=== PATIENT | female | born 1940 | race Caucasian/White ===

== ENCOUNTER 2018-01-31 10:06 | Day surgery (SDC) | payer MEDICARE, OTHER, SELFPAY ==
[2018-01-24 08:53] VITALS: BMI 27.0
[2018-01-31] VITALS (14 sets, daily range): BP systolic 126–175; BP diastolic 57–87; PULSE 55–102; RESP 12–18; TEMP 36.4–36.9; O2SAT 93–98; BMI 27.0
--- NOTE | 2018-01-31 | DI.RAD.S_ITS ---
PROCEDURE: XR CERVICAL SPINE 2V OR 3V INDICATIONS: C5-6 FUSION TECHNIQUE: Fluoroscopic images were obtained during an operative procedure and submitted for interpretation following the completion of the procedure. COMPARISON: None. FINDINGS: These fluoroscopic images were performed for intraoperative localization. On these images, there is a anteriorly placed fusion device at the C5-C6 level. Please correlate with intraoperative findings. IMPRESSION: Normal intraoperative examination. Dictated by: Rafael Leslie M.D. on 01/31/2018 at 15:04 Approved by: Rafael Leslie M.D. on 01/31/2018 at 15:05
[2018-01-31] MEDS: LACTATED RINGERS 1,000 ML 42 ML IV ×2 (12:00→15:09)
--- NOTE | 2018-01-31 12:04 | PM.PREOP ---
Pre-operative Note Interval Note Pre-op Check: Yes History & Physical Reviewed by Physician and Yes Exam Performed Changes: No
--- NOTE | 2018-01-31 12:09 | PM.OP.1 ---
Operative Date/Time/Diagnoses Date of procedure: 01/31/18 Time of procedure: 14:07 Pre-op diagnosis: Cervical stenosis with myelopathy Post-op diagnosis: same Procedure & Clinicians Procedure: C5-6 anterior cervical diskectomy and fusion with cage Iliac crest bone marrow aspirate Use of microscope Same procedure as scheduled: Yes Indications: [age] year old female with intractable pain from cervical stenosis. They had failed conservative management and requested operative intervention. Risks and benefits of surgery were discussed and appropriate consents were obtained. Surgeon: Ozzie Boyce Supervisor Slashing Department: Maria R Moya Anesthesia Type: General Operative Notes Findings: None Closure Type: primary Specimen(s): none sent Implants & Drains: Abiodun LDR MYAH-C Estimated Blood Loss (mL): 5 Procedure in detail: Patient was brought to the operating room and intubated on the table. A time-out was performed. Preoperative antibiotics were given. The neck was prepped and draped in the standard sterile fashion. Using a skin fold, we made a 3 cm oblique incision on the left side. We used Bovie to go through the platysma and then did a standard anterolateral blunt dissection down to the precervical fascia. Fascia was nicked and elevated up. A marker was placed and x-ray was taken for localization. We then subperiosteally elevated up the longus colli muscles. Self-retaining retractors were placed. [place] pins were placed. We then brought in the microscope. A scalpel used to perform an annulotomy. We then used a combination of pituitaries and curettes and Kerrison to perform a complete anterior diskectomy at C5-6. We used the bur to take down the posterior osteophytes. We took down the PLL and used Kerrison to remove any posterior disc material and osteophytes. At the end we could from the nerve hook cephalad caudally and out the foramen and everything was opened. A small stab incision was made over the left anterior iliac crest. A Jamshidi needle was advanced down the pedicle and 2 mL of bone marrow was aspirated. We then used the trials. We then packed a MYAH-C cage with Osteocell bone graft and the iliac crest harvest. The cage was placed under fluoroscopic guidance. We then placed our two locking plates. The self-retaining retractors and [place] pins were removed and final x-rays taken. The wound was irrigated. There was no bleeding. The carotid was beating nicely. The platysma was closed. The superficial was closed. The skin was closed. A sterile dressing was placed. They were then extubated and brought to recovery room with no complications. Complications: none Condition: stable Disposition: PACU Plan for aftercare: Overnight admission, should be fine for discharge home tomorrow morning. Soft collar for comfort.
[2018-01-31] MEDS: CEFAZOLIN 2 GM/100 ML FROZ.PIGGY IV ×2 (12:55→20:37)
[2018-01-31] MEDS: BUPIVACAINE 0.25% W/ EPI VIAL 50 ML INJ (13:26)
[2018-01-31] MEDS: SODIUM CHLORIDE 0.9% 1,000 ML, GENTAMICIN 80 MG IRR (13:32)
--- NOTE | 2018-01-31 13:40 | SUR.OPER ---
Supine on padded OR bed, head on gel doughnut pillow, towel roll under shoulders running head to toe, arms padded and tucked at side, legs uncrossed, safety belt at thigh, tape over blanket over lower legs .
[2018-01-31] MEDS: HYDROMORPHONE 2 MG INJ 0.5 MG IV ×4 (14:37→15:04)
[2018-01-31] MEDS: LORazepam 2 MG/ML SYRINGE 0.25 MG IV ×2 (14:43→15:13)
[2018-01-31] MEDS: CELECOXIB 200 MG CAPSULE 400 MG PO (16:33)
[2018-01-31] MEDS: GABAPENTIN 300 MG CAPSULE PO ×2 (16:33→20:36)
[2018-01-31] MEDS: DICLOFENAC 1% GEL 100 GM 2 APPLIC TOP ×2 (16:33→20:36)
[2018-01-31] MEDS: LACTATED RINGERS 1,000 ML 125 ML IV (16:35)
[2018-01-31] MEDS: CELECOXIB 200 MG CAPSULE PO (20:36)
[2018-01-31] MEDS: DOCUSATE 100 MG CAPSULE PO (20:37)
[2018-01-31] MEDS: SENNOSIDES 8.6 MG TABLET 17.2 MG PO (20:37)
--- NOTE | 2018-01-31 23:35 | PC.NURSE ---
Evening Shift Note- Patient arrived to room via bed from PACU at 1550. patient alert and oriented and drowsy. admission questions completed, home medications reviewed, physical assessment done. Oriented patient to bed and bed controls, room, bathroom, lights, menu, phone, and call ball/tv remote. safety measures in place. Patient requires 1PA w/ walker. Patient agress to call for assistance. call ball and phone within reach will continue to monitor.
[2018-02-01] MEDS: LACTATED RINGERS 1,000 ML 125 ML IV (01:08)
[2018-02-01] MEDS: HYDROCODONE/ACET 5/325 TABLET 1 TAB PO ×3 (01:10→10:33)
[2018-02-01 01:14] VITALS: BP 121/45; PULSE 53; RESP 16; TEMP 36.8; O2SAT 94
--- NOTE | 2018-02-01 01:25 | PC.NURSE ---
Addendum entered by Ena Felix R.N. 02/01/18 05:36: States pain is currently 5/10 so medicated with Vicodin and provided ice pack. Oxygen remains at 2L/min with sat of 99% but when oxygen is decreased and patient falls asleep she desats into the 80's, so continues on oxygen at this time. Original Note: Addendum entered by Ena Felix R.N. 02/01/18 02:06: Oximeter alarming and found RA sat to be at 85% so oxygen restarted at 1L/min per NC Original Note: Patient is alert and oriented. Breath sounds CTA with RA sat of 94%. HRR but noted to be in 40's when asleep and 50's after being up to bathroom. Denies nausea. BT present but denies flatus. Ambulated with 1 assist + walker to/from bathroom and seemed steady on feet but reports falls in past 3 months. Voiding without dysuria, frequency or urgency. Independent with bed mobility. Dressings to anterior neck and left hip are CDI. Wearing soft cervical collar for comfort. Complains of 4/10 posterior neck pain so medicated with Vicodin and ice pack applied for comfort. Noted bruise at medial aspect of left eye. Chronic bilateral LE neuropathy. Fall risk score is high and bed alarm is activated.
[2018-02-01 03:04] VITALS: O2SAT 99
[2018-02-01] MEDS: CEFAZOLIN 2 GM/100 ML FROZ.PIGGY IV (05:26)
[2018-02-01 06:18] VITALS: BP 152/59; PULSE 55; RESP 16; TEMP 36.6; O2SAT 98
[2018-02-01] MEDS: LEVOTHYROXINE 75 MCG TABLET PO (06:34)
[2018-02-01 08:00] VITALS: BP 124/58; PULSE 47; RESP 16; TEMP 36.5; O2SAT 94
--- NOTE | 2018-02-01 08:03 | PM.PNPO.1 ---
Subjective Date Patient Seen: 02/01/18 Time Patient Seen: 08:03 Interval history: Doing very well. Arms feel fine. Pain about 3/10. Exam Vital Signs (past 8 hours): - 02/01/18 01:14 02/01/18 03:04 02/01/18 06:18 Temperature 98.2 F 97.9 F Pulse Rate 53 L 55 L Respiratory Rate 16 16 Blood Pressure 121/45 L 152/59 H Pulse Oximetry 94 99 98 Oxygen Delivery Method Room Air Oxygen Flow Rate 2 Const Orientation: alert and oriented x3 Back/Spine/Pelvis Other: Dressing CDI. 5/5 motor both upper extremities except for 4/5 bilateral intrinsic Assessment & Plan Post-op Postoperative Procedures Operation Date: 01/31/18 12:15 Actual Procedures Side Surgeon p C5-6 ACDF w/Bone graft Ozzie Boyce MD she is doing very well. Up with physical therapy and discharge home this morning.
[2018-02-01] MEDS: AMLODIPINE 5 MG TABLET PO (08:39)
[2018-02-01] MEDS: ASPIRIN EC 81 MG TABLET PO (08:40)
[2018-02-01] MEDS: ASCORBIC ACID 500 MG TABLET PO (08:40)
[2018-02-01] MEDS: CALCIUM CARBONATE 600 MG TABLET PO (08:40)
[2018-02-01] MEDS: CELECOXIB 200 MG CAPSULE PO (08:40)
[2018-02-01] MEDS: CITALOPRAM 20 MG TABLET PO (08:41)
[2018-02-01] MEDS: DICLOFENAC 1% GEL 100 GM 2 APPLIC TOP (08:41)
[2018-02-01] MEDS: DOCUSATE 100 MG CAPSULE PO (08:42)
[2018-02-01] MEDS: FERROUS SULFATE 325 MG TABLET PO (08:42)
[2018-02-01] MEDS: FUROSEMIDE 20 MG TABLET PO (08:43)
[2018-02-01] MEDS: PANTOPRAZOLE 20 MG TABLET PO (08:43)
[2018-02-01] MEDS: GABAPENTIN 300 MG CAPSULE PO (08:43)
--- NOTE | 2018-02-01 09:08 | PT.IPTN ---
Addendum entered and electronically signed by Zaira Martin PT 02/01/18 13:41: this is to certify that I am involved with this pt and reviewed this documentation and POC. Original Note: Current Diagnoses Spondylolisthesis, lumbar region (01/31/18) Other spondylosis with myelopathy, cervical region (01/31/18) Spinal stenosis, lumbar region with neurogenic claudication (01/31/18) Surgery Performed Operation Date: 01/31/18 12:15 Actual Procedures p C5-6 ACDF w/Bone graft - Ozzie Boyce MD Physical Therapy Treatment Note M2 PT-IP Current Condition Start: 02/01/18 10:42 Freq: NEEDED Status: Discharge Protocol: Document 02/01/18 09:08 (Rec: 02/01/18 11:12 [email or web address]) Physical Therapy Current Condition Current Condition Evaluation Date 02/01/18 Treatment Diagnosis C-spine discectomy/fusion; difficulty walking; history of falls Onset Date 01/31/2018 Precautions Cervical Spine Precautions Soft Collar for Comfort No Heavy Lifting Log Roll Brace soft collar for comfort. Other Precautions high fall risk M3 PT-IP Subjective Start: 02/01/18 10:42 Freq: NEEDED Status: Discharge Protocol: Document 02/01/18 09:08 (Rec: 02/01/18 11:12 [email or web address]) Subjective Physical Therapy Visit Type Type Initial Evaluation Visit Start Time 09:03 Visit Stop Time 09:50 Total Visit Minutes [address] ENGINEER FREIGHT Visits 0 Physical Therapy Visit Comments Patient Comments Pt agreeable to mobilize. Her grandaugher and [id number]- law are present this visit; they will be driving her home from the hospital. Patient Goals Pt planning to d/c to home with her daughter 18/10 assist and neighbor intermittent assist. Therapy Pain Assessment Pain When Pain Assessed During Mobility Pain Present Pain Present Pain Reported Location Posterior Neck Scale Used 6/10 at rest. up to 7/10 with mobility. Pain Behaviors Facial Grimacing Guarding Pain Management Techniques Distraction Modification of Treatment Re-positioning Timing of Activity with Medications M4 PT-IP Mobility and Gait Start: 02/01/18 10:42 Freq: NEEDED Status: Discharge Protocol: Document 02/01/18 09:08 (Rec: 02/01/18 11:12 [email or web address]) PT-Bed Mobility Assessment Rolling Type of Rolling Log Rolling Roll to Left Level of Assist Standby Assistance Contact Guard Assistance Supine to Sit Supine to Sit Standby Assistance Sit to Supine Sit to Supine Standby Assistance Scooting Scooting to Edge of Bed Standby Assistance PT-Transfer Assessment Sit to and From Stand Sit to and from Stand Standby Assistance Equipment Transfer Assistive Device Gait Belt Front Wheeled Walker Orthotic/Prosthetic Devices or Brace: Yes Transfers Transfer Destination Bed Chair Transfer Technique pt ambulating between surfaces . Comments Mobility Comments Pt performed log roll 3 times requiring min cues and CGA for the first 2 attempts and then able to complete log roll SBA and no cuing the 3rd attempt. Sit <> stand pt is SBA with fww, min cues to push off from chair/bed (not walker). Gait Assessment Gait Gait Assistance Required: Standby Assistance Contact Guard Assist Minimum Assistance Distance (Feet) 60 Able to Maintain Weight Bearing Status Yes During Gait Assistive Devices Assistive Device Gait Belt Straight Cane Front Wheeled Walker 4 Wheeled Walker Orthotic/Prosthetic Devices or Brace: Yes Gait Deviations General Gait Pattern Antalgic Decreased Stride Length Decreased Feet Clearance Flexed Trunk Lateral Trunk Lean Factors Limiting Gait Function Factors Limiting Gait Function Decreased Activity Tolerance Decreased Sensation Decreased Strength Incoordination Limited Range of Motion Pain Poor Balance Poor Safety Awareness Comments Gait Comments Pt ambulated 15 ft. with fww SBA. Then attempted quad cane x10 ft. and was minAx1 for steadying with several minor LOB that required Orville to correct. She required max cues for appropriate quad cane use. Attempted 15 ft. with 4WW and pt was CGA to Orville for steadying. Additional 20 ft in room with fww and SBA completed. It was noted that pts gait mechanics also improve greatly when using fww , notably improved step clearance, step length, posture, as well as steadyness . PT-Balance Assessment Sitting Balance and Reactions Static Sitting Balance Ability Good Dynamic Sitting Balance Ability Good Standing Balance and Reactions Static Standing Balance Ability Fair Dynamic Standing Balance Ability Poor Device Used quad cane Comments Other Balance Tests/Deviations/Treatment Dynamic balance improves with : fww during ambulation M5 PT-IP Objective Assessments Start: 02/01/18 10:42 Freq: NEEDED Status: Discharge Protocol: Document 02/01/18 09:08 (Rec: 02/01/18 11:12 [email or web address]) Orientation Orientation/Cognition Level of Alertness Alert Orientation Name Age Birthday Month Date Year Day of Week Place Situation Language Function Ability No Deficits Noted Safety Awareness Decreased Safety Awareness Strength Lower Extremity Strength Assessment Bilaterally Impaired Comments Strength Comments BLE 4-/5 gross strength but symmetrical Sensation Assessment Sensation Gross Sensation Right LE Impaired Left LE Impaired Light Touch Impaired Comments Sensation Comments light touch is decreased R > L . M6 PT-IP Treatment Start: 02/01/18 10:42 Freq: NEEDED Status: Discharge Protocol: Document 02/01/18 09:08 (Rec: 02/01/18 11:12 [email or web address]) Physical Therapy Treatment Education Education Provided Precautions Weight Bearing Status Post-Op Packet Safety Other Treatments Other Treatment Performed Caregiver education regarding gait belt donning and doffing ([id number]). States he is comfortable with this. Pt educated in need for fww for safety and balance as well as need for 24/7 assist currently. M7 PT-IP Assessment and Plan Start: 02/01/18 10:42 Freq: NEEDED Status: Discharge Protocol: Document 02/01/18 09:08 (Rec: 02/01/18 11:12 [email or web address]) PT Summary Assessment and Plan Potential Rehabilitation Potential Good Status of Condition at Evaluation Stable Summary Impairments Pain ROM Strength Balance Coordination Bed Mobility Transfers Gait Activity Tolerance Progress Towards Goals Progressing Toward Goals Assessment Summary Pt s/p C-spine discectomy/ fusion with difficulty walking and history of falls. She demonstrates impaired dynamic balance during ambulation requiring SBA with fww, and Orville for safety with quad cane . Pt informed of PT recommendation for pt to use a fww for all ambulation for safety. She agreed and her grandson is working on obtaining a fww for her. Recommend d/c to home with 24/ 7 assist and OP PT when pt is medically stable. Goals Bed Mobility Goal Independent Transfer Goal Independent Front Wheeled Walker Gait Goal Standby Assistance Front Wheel Walker Gait Distance 150 Other Goals STG: pt will ambulate 75 ft with fww SBA LTG: pt will ambulate 100 ft. with fww SBA Days to Meet Goals 2 Frequency of Treatment Frequency Of Treatment Twice a Day Treatment Plan Physical Therapy Treatment Plan Bed Mobility Training Transfer Training Gait Training Therapeutic Exercise Balance Retraining Post Op Education Discharge Planning Hot or Cold Pack Neuromuscular Re-ed Coordination Retraining Manual Therapy Recommendations To Nursing Amount of Assist Needed 1 Person Assist Discharge Recommendations PT Discharge Recommendations Home with 24/7 Assist Outpatient PT
--- NOTE | 2018-02-01 10:38 | OT.IP.EVAL ---
Current Diagnoses Spondylolisthesis, lumbar region (01/31/18) Other spondylosis with myelopathy, cervical region (01/31/18) Spinal stenosis, lumbar region with neurogenic claudication (01/31/18) Surgery Performed Operation Date: 01/31/18 12:15 Actual Procedures p C5-6 ACDF w/Bone graft - Ozzie Boyce MD Past Medical History (Last Reviewed 01/31/18 @ 16:33 by Deena Calderon RN) Anemia (Acute) Anxiety (Acute) Aortic atherosclerosis (Acute) Aortic valve stenosis (Acute) Bradycardia (Acute) Cervical fusion syndrome (Acute) Cervical stenosis of spinal canal (Acute) Chronic kidney disease (Acute) Chronic left shoulder pain (Acute) DDD (degenerative disc disease), cervical (Acute) Depression (Acute) Disorder (Acute) Essential hypertension (Acute) Exertional dyspnea (Acute) Fatigue (Acute) Fracture of right wrist (Acute) Hiatal hernia (Acute) History of abdominal pain (Acute) History of nuclear stress test (Acute ~06/25/16) Hypothyroidism (Acute) Lower extremity edema (Acute) Lumbar radicular syndrome (Acute) Lumbar stenosis with neurogenic claudication (Acute) Osteoarthritis of left shoulder (Acute) Pigmented skin lesion suspicious for malignant neoplasm (Acute) Pulmonary embolism (Acute) Radius fracture (Acute ~12/09/17) Recurrent epigastric abdominal pain (Acute) Rib pain on left side (Acute) Spondylolisthesis, lumbar region (Acute) Stenosis of cervical spine with myelopathy (Acute) Traumatic closed fracture of ulnar styloid with minimal displacement (Acute) Weakness (Acute) Surgical History (Last Reviewed 01/31/18 @ 16:33 by Deena Calderon RN) H/O bilateral cataract extraction (Acute) History of adenoidectomy (Acute) History of hernia repair (Acute ~2008) History of knee surgery (Acute) Status post total shoulder arthroplasty (Acute) Occupational Therapy Inpatient Evaluation/Re-Eval M1 PT/OT-IP Prior Functional Status Start: 02/01/18 15:21 Freq: NEEDED Status: Active Protocol: Document 02/01/18 10:38 JS (Rec: 02/01/18 17:07 JS [email or web address]) Medical Review Prior Functional Status Medical History Reviewed Yes Communication No deficits noted. Mobility and Gait Pt used a quad cane for 100% outdoor ambulation. Indoors she used quad cane ~70% of the time or no AD. She could ambulate distances for shopping. Activities of Daily Living and IADL's Pt was independent with all self care, IADLS, driving. Prior Functional Level (Other details) 3 falls reported in just the last month. Several more over the last year. Social History Household Members none Living Arrangements House Number of Floors (Floors) Two Floors Number of Stairs To Enter/Railing? No stairs to enter. She has a basement with freezer and storage in it but she never goes there, asking friends or family to access it for her when needed. Home Environment Standard Height Toilet Walk in Shower Ramp Home Equipment Four Wheel Walker Quad Cane Bedside Commode Raised Toilet Seat Without Armrests Shower Seat with Backrest Hand Held Shower Structural Steel Shop Supervisor Grab Bars Near Toilet Grab Bars In Shower Employment Status Retired Additional Social History Comment Pts daughter, Coco, is planning to stay with the patient after discharge for 2- 3 days 18/10. Family and her neighbor will also be available to assist intermittently. M2 OT-IP Current Condition Start: 02/01/18 15:21 Freq: Status: Active Protocol: Document 02/01/18 10:38 PJM (Rec: 02/01/18 17:07 PJ [email or web address]) Occupational Therapy Current Condition Current Condition Evaluation Date 02/01/18 Treatment Diagnosis decreased self care, functional mobility s/p C5-6 ACDF Diagnosis Onset Date 01/31/18 Post Operative Precautions Cervical Spine Precautions Soft Collar for Comfort No Heavy Lifting Log Roll Other Precautions high fall risk M3 OT- IP Subjective and Pain Start: 02/01/18 15:21 Freq: Status: Active Protocol: Document 02/01/18 10:38 PJM (Rec: 02/01/18 17:07 [facility] [email or web address]) OT- Subjective Occupational Therapy Visit Type Type Initial Evaluation Visit Start Time 09:42 Visit Stop Time 10:38 Total Visit Minutes 56 Notes Pt's granddaughter here at end of session for education. Occupational Therapy Visit Comments Patient/Caregiver Goals to go home OT Pain Assessment Pain When Pain Assessed After Treatment Pain Present Pain Present Pain Reported Location Posterior Neck Intensity 6 Scale Used Numeric (1 - 10) Description Aching Acute Management Techniques Distraction Re-positioning Timing of Activity with Medications M4 OT- IP ADL's Start: 02/01/18 15:21 Freq: Status: Active Protocol: Document 02/01/18 10:38 PJM (Rec: 02/01/18 17:07 PJ [email or web address]) OT ESO-Ficv-[id number] General Evaluation Diet Level for Self-Feeding soft foods recommended Self-Feeding Ability Independent OT ADL-Grooming General Evaluation Grooming Ability Independent Areas Needing Assistance Combing/Brushing Hair Glasses Comments OT Grooming Comments after education re: body mechanics with FWW standing at sink OT ADL-Oral Care General Eval Oral Care Ability Independent Areas of Assistance Brushing Teeth Devices Oral Care Devices Toothbrush Comments Oral Care Comments after education re: body mechanics with FWW standing at sink OT ADL-Dressing General Eval Upper Body Dressing Ability Independent Lower Body Dressing Ability Standby Assistance Minimal Assistance Areas Needing Assistance Bra Button-Up Shirt/Blouse Underpants/Brief Pants/Shorts Socks Shoes Assistive Devices Dressing Assistive Devices Long Handled Shoe [place] [employer] Shop Supervisor Sock Aid Comments OT Dressing Comments Provided education and practice re: use of lower body dressing equipt to avoid forward bending. Pt SBA except to don slip on shoes due to very tight fit. Granddaughter to assist with finding looser shoes. OT ADL-Toileting General Evaluation Toileting Ability Independent OT ADL-Bathing Bathing Type Bathing Type Shower General Evaluation Bathing Ability Standby Assistance Comments OT Bathing Comments daughter to provide SBA PRN; provided education re: keeping incision dry until first post op visit M5 OT- IP IADL's Start: 02/01/18 15:21 Freq: Status: Active Protocol: Document 02/01/18 10:38 PJLeda (Rec: 02/01/18 17:07 PJ [email or web address]) OT-Instrumental Activities of Daily Living Deficits IADL Deficits Identified Deficits Home Safety Awareness Awareness of Need for Assistance at Home Good Awareness Ability to Problem Solve Emergency Able to Problem Solve Situations Medication Management Medication Management No Deficits Identified Money Management Money Management No Deficits Identified Meal Preparation Meal Preparation Caregiver Provides Assist Meal Preparation Comments granddaughter to assist with grocery shopping PRN Menagerie Caretaker Menagerie Caretaker Caregiver Provides Assist Menagerie Caretaker Comments family to assist PRN until pt able Driving Driving Caregiver Provides Assist Driving Comments family to assist PRN until pt able M6 OT- IP Functional Cognition Start: 02/01/18 15:21 Freq: Status: Active Protocol: Document 02/01/18 10:38 PJM (Rec: 02/01/18 17:07 [facility] [email or web address]) Cognitive Factors Limiting Selfcare Function Cognitive Ability Level of Alertness Alert Patient Orientation Name Age Birthday Month Date Year Day of Week Place Situation Attention Span Ability Capable of Focused Attention Capable of Sustained Attention Ability to Follow Commands Able to Follow One Step Commands Cognitive Comments Cognitive Assessment Comments Pt needs min cues to problem solve adapted ADL techniques OT- Vision and Hearing OT- Hearing Assessment OT- Hearing Assessment WFL OT- Vision Assessment Visual Attentiveness WFL Vision Assessment Comments Pt denies any recent vision changes M7 OT- IP Mobility and Balance Start: 02/01/18 15:21 Freq: Status: Active Protocol: Document 02/01/18 10:38 PJM (Rec: 02/01/18 17:07 [facility] [email or web address]) OT-Transfer Assessment Sit to and From Stand Sit to and from Stand Independent Devices Transfer Assistive Devices Front Wheeled Walker Comments Mobility Comments Pt up in chair when therapist arrived. P.T. educated pt re: log rolling. OT- Gait Assessment Gait Gait Assistance Required: Independent Assistive Devices Assistive Device Front Wheeled Walker OT- Balance Assessment Sitting Balance and Reactions Static Sitting Balance Ability Good Dynamic Sitting Balance Ability Good Standing Balance and Reactions Static Standing Balance Ability Good Dynamic Standing Balance Ability Good Comments Other Balance Tests/Deviations/Treatment during lower body clothing : management M8 OT- IP Objective Assessments Start: 02/01/18 15:21 Freq: Status: Active Protocol: Document 02/01/18 10:38 PJM (Rec: 02/01/18 17:07 [facility] [email or web address]) OT Gross Range of Motion Upper Extremity Range of Motion Assessment Left Impaired ROM Impairments R shldr scaption AROM ~10 degrees and L shldr scaption ~ 45 degrees due to severe arthritis. Distal AROM WFL distally. OT Strength Upper Extremity Strength Assessment Within Functional Limits Hand Mixing Machine Feeder Strength Hand Dominance Right OT- Coordination Assessment Comments Coordination Comments BUE WFL; pt uses L hand dominantly for some tasks due to decreased R shoulder AROM OT-Muscle Tone Assessment Muscle Tone WNL Yes OT Sensation Assessment Comments Summary Comments Pt denies sensory deficits in BUE's Edema Edema Absent M9 OT- IP Assessment and Plan Start: 02/01/18 15:21 Freq: Status: Active Protocol: Document 02/01/18 10:38 PJM (Rec: 02/01/18 17:07 PJLeda [email or web address]) OT Summary Assessment and Plan Potential Analytic Complexity at Evaluation Low Summary Progress Towards Goals Safe For Discharge Goals Met Assessment Summary Low complexity OT assessment and all education completed today re: C spine precautions and adapted ADL techniques. Pt plans to d/c home today with daughter to stay with her for first 2-3 days, then granddaughter to provide intermittent assist. Goals Grooming Goal Independent Dressing Goal Standby Assistance Toileting Goal Independent Bathing Goal Standby Assistance Toilet Transfer Goal Independent Shower Transfer Goal Standby Assistance Patient/Caregiver Education Goal Demonstrate Post-Op Precautions Frequency of Treatment Frequency Of Treatment Discharge Discharge Recommendations OT Discharge Recommendations Home with Assistance Home Equipment Needs pt provided with sock aid, long bath sponge and long shoe horn
[2018-02-01 11:00] VITALS: BP 135/60; PULSE 52; RESP 12; TEMP 37.4; O2SAT 96
== END 2018-02-01 11:05 | disposition home or self-care (01) ==
LOC: OR 10:13 → AC 10:13
PROVIDERS: PCP Family Medicine; Visit Provider Orthopaedic Surgery
PROC: (CPT 22551; principal; 2018-01-31 12:15)
DX: M47.12 Other spondylosis with myelopathy, cervical region (principal); M48.062 Spinal stenosis, lumbar region with neurogenic claudication; M43.16 Spondylolisthesis, lumbar region; Z86.711 Personal history of pulmonary embolism; M19.90 Unspecified osteoarthritis, unspecified site; E03.9 Hypothyroidism, unspecified; I25.10 Atherosclerotic heart disease of native coronary artery without angina pectoris; N18.9 Chronic kidney disease, unspecified; I12.9 Hypertensive chronic kidney disease with stage 1 through stage 4 chronic kidney disease, or unspecified chronic kidney disease
CPT/HCPCS: 22551; 20939; 22853; 72040; 76001; 94760; 97116; 97161; 97165; 97530; 97535; C1776; J0330; J0690; J1100; J1170; J2060; J2250; J2405; J2704; J3010

== ENCOUNTER 2018-12-05 06:03 | Inpatient (IN) | payer MEDICARE, OTHER, SELFPAY ==
[2018-01-31 16:39] VITALS: BMI 27.0
[2018-11-14 09:53] VITALS: BMI 26.7
[2018-12-05] VITALS (27 sets, daily range): BP systolic 79–132; BP diastolic 41–74; PULSE 59–107; RESP 9–20; TEMP 36.2–37.5; O2SAT 2–100; BMI 25.9
--- NOTE | 2018-12-05 | DI.RAD.S_ITS ---
PROCEDURE: XR LUMBAR SPINE 2-3V INDICATIONS: T-10-12 L3-S1 LAMINECTOMIES, L4-S1 INSTRUMENTED FUSION TECHNIQUE: 2 views of the lumbar spine were acquired. COMPARISON: None. FINDINGS: 2 spot fluoroscopic intraoperative images demonstrating L4-S1 posterior spinal fusion with interbody cage grafts. There is expected intraoperative alignment. Dictated by: Mak Wang M.D. on 12/05/2018 at 15:25 Approved by: Mak Wang M.D. on 12/05/2018 at 15:25
--- NOTE | 2018-12-05 07:21 | SUR.PREOP ---
Pt reports has numbness and tingling in both lower extremities in which pt reports at times goes all the way up into her hips. pt reports numbness and tingling is mostly constant in her her feet.
[2018-12-05] MEDS: LACTATED RINGERS 1,000 ML 42 ML IV ×2 (07:27→12:30)
--- NOTE | 2018-12-05 07:30 | PM.PREOP ---
Pre-operative Note Interval Note History & Physical reviewed/Exam performed by Physician: Yes Changes to H&P: No
--- NOTE | 2018-12-05 07:43 | PC.NURSE ---
Day shift: Pt not on AC unit at this time.
--- NOTE | 2018-12-05 07:45 | P.OP_ITS ---
Operative Date/Time/Diagnoses Date of procedure: 12/05/18 Time of procedure: 13:39 Pre-op diagnosis: Thoracic stenosis with myelopathy Lumbar stenosis with radiculopathy Lumbar spondylolisthesis Post-op diagnosis: same Procedure & Clinicians Procedure: T10-11, T11-12 laminectomies L3-4, L4-5, L5-S1 laminectomies L4-5, L5-S1 TLIF (post/post innerbody fusion) with cages L4, L5, S1 screws Iliac crest bone graft aspirate Use of microscope Placement of epidural catheter Same procedure as scheduled: Yes Indications: [age] year old female with intractable pain from myelopathy. They had failed conservative management and requested operative intervention. Risks and benefits of surgery were discussed and appropriate consents were obtained. Surgeon: Ozzie Boyce Pump Machine Operator: Maria R Moya Anesthesia Type: General Operative Notes Findings: None Closure Type: primary Specimen(s): none sent Prosthetic devices, grafts, tissues, transplants, or devices: Nuvasive Reline MAS screws Globus Rise cage Applied: catheter Estimated Blood Loss (mL): 20 Procedure in detail: The patient was brought to the operating room and intubated on the table. A time-out was performed. They were then rolled over to the well- padded Ismael table in the prone position. Preoperative antibiotics were given. The back was prepped and draped in the standard sterile fashion. Using fluoroscopy, a 6 cm longitudinal incision was made to the right of the midline. We used Bovie to come down to and split the lumbodorsal fascia. Using fluoroscopy and monitoring, we then percutaneously placed Jamshidi needles down the pedicles of L4, L5, and S1 on the right side. These were changed out to guidewires and then we tapped and then placed the NuVasive MAS Reline screw shanks. We then opened up the retractors and used Bovie to clear up the posterolateral gutter as well as medially along the lamina to the spinous processes. A bur was used to decorticate the transverse processes at L5 and the sacral ala. We brought in the microscope. Using a combination of bur and Kerrison rongeurs, a laminectomy was performed from the right side at L5-S1. We cleared over past the midline and carefully depressed the dura until we were able to decompress the opposite side. We cleared out the neural foramen, requiring facetectomy. This completed the laminectomy at L5-S1. We then began the TLIF prep. A the remainder of the facetectomy was performed on this side at L5-S1. We carefully cleaned up the remainder of the foramen until we could easily retract the exiting root as well as clearing medially below the dura and expose the disc space. The disc was prepped with bipolar and then an annulotomy was performed. We performed a diskectomy using a combination of paddles, harpreet, pituitaries, and curettes. We distracted the disc using a paddle and locked the retractor in an open position. We then filled the disc space with Osteocel bone graft. We then placed the globus Rise cage under fluoroscopy and then filled this in with more bone graft. The distraction on the retractor was released to compress down. This completed the posterior interbody fusion portion of the TLIF at L5-S1. We then adjusted our retractors up to L4-5. We cleared out the gutter and decorticated the L4 transverse process. We cleared medially over the lamina. Again a complete laminectomy was performed at this level. This was separate and distinct from the approach for the fusion as she had severe central stenosis in the entire canal had to be opened up, which is much more complex than just a simple approach. Once this was opened, we carefully retracted the dura medially and exposed the disc. A complete diskectomy was performed and then we placed bone graft into the disc space. We placed another globus Rise cage in fluoroscopy and expanded this. More bone graft was placed. This completed the posterior interbody portion of the TLIF at L45. We then went up to L3-4. The retractor was switched off just mounted on the L4 screw. We cleared the soft tissue off the lamina. A complete laminectomy was performed at this level decompressing the central canal. Everything was confirmed with a ball probe. We then placed the screw heads, gina, and locked down the set screws. The wound was copiously irrigated. A small stab incision was made over the PSIS. We used a Jamshidi needle to aspirate several mL of bone marrow from the pelvis. This was mixed with the remaining Osteocel and combined with all of the locally harvested bone graft and placed in the posterolateral gutter for the posterior fusion of the TLIF at L4-5 and L5-S1. An epidural catheter was then primed and placed in the spinal canal by carefully depressing the dura and advancing it 6 cm cephalad under the remaining lamina without resistance. The muscle fascia was closed. We then used fluoroscopy to go up to the thoracic spine. A 5 cm midline incision was made from T10 through 12. We dissected the paraspinal muscles off both sides. We brought in the microscope. A laminectomy was performed at T10- 11 and T11-12 for central decompression at these levels. We did this with bilateral laminotomies on both sides in order to keep the spinous processes and midline ligaments intact. Due to the spondylolisthesis at this T11-12, the dura dove deeply underneath the T12 lamina and I undermined the cephalad portion of this to take the tension off the dura. The wound was irrigated. The fascia was closed. The lumbar epidural catheter was then injected with a solution containing 4 mL of 0.5% Marcaine, 1 mg Stadol, 4 mg Duramorph, and 100 mcg of fentanyl. This was injected without resistance and the catheter was pulled. We then went to the left side. Again using fluoroscopy, a 3 cm incision was made and Bovie was used to come down to split the fascia. Using neural monitoring and fluoroscopy, Jamshidi needles were advanced down the pedicles of L4, L5, and S1 on the left side. These were switched over guidewires, tapped, and screws placed. We then placed a gina and locked the set screws on this side. The wound was irrigated. The fascia was closed. The wounds were irrigated again. Vancomycin powder was placed in the wounds. The superficial and skin were closed. A sterile dressing was placed. The patient was then rolled over extubated and brought to recovery room without complications. Complications: none Post-operative Condition: stable Disposition: PACU Plan for aftercare: Inpatient. Up with therapy.
[2018-12-05] MEDS: CEFAZOLIN 1 GM/50 ML FROZ.PIGGY IV ×3 (08:12→19:31)
--- NOTE | 2018-12-05 08:48 | SUR.OPER ---
Prone on spine table, head in foam head support, padded chest and pelvic supports, gel pad at knees, lower legs supported by pillows; nipples, genitalia and toes free of pressure, arms secured on foam padded arm boards at <90 degrees abduction. Tape over blanket at thigh secured to table.
[2018-12-05] MEDS: VANCOMYCIN 1,000 MG VIAL 1000 MG TOP (08:54)
[2018-12-05] MEDS: SODIUM CHLORIDE 0.9% 1,000 ML, GENTAMICIN 80 MG IRR (08:55)
[2018-12-05] MEDS: THROMBIN (RECOMBINANT) 5,000 UNIT VIAL 5000 UNIT TOP (08:56)
[2018-12-05] MEDS: BUPIVACAINE 0.5% (PF) 4 ML, MORPHINE-PF 4 MG, BUTORPHANOL 1 MG, fentaNYL 100 MCG INJ (08:58)
[2018-12-05] MEDS: BUPIVACAINE 0.25% W/ EPI 30 ML VIAL INJ (13:17)
--- NOTE | 2018-12-05 13:59 | CM.DPNOTE ---
DCP Brief Assessment Note Patient is an 78 year old female who was admitted today 12/05/18 for TLIF. Pt has MCR and REG PPO for insurance and her PCP is Dr. Priti Schneider. EMR was reviewed. Per Ortho , pt to have surgery this morning and PT/OT to be ordered after pt returns to the floor and is medically appropriate. SW attempted bedside assessment but pt still not on the floor but in recovery as of 1400. Plan: SW to follow for bedside assessment tomorrow and follow for PT/OT eval and recommendations to determine if pt safe for return home with family support vs SNF. LIDNA Carroll
[2018-12-05] MEDS: MEPERIDINE 50 MG/ML INJ 12.5 MG IV ×2 (14:05→14:14)
[2018-12-05] MEDS: fentaNYL 100 MCG/2 ML INJ 50 MCG IV ×2 (14:26→14:45)
[2018-12-05] MEDS: HYDROMORPHONE 2 MG INJ 0.5 MG IV ×2 (14:31→14:56)
--- NOTE | 2018-12-05 15:10 | SUR.PHASEI ---
Anesthesia at bedside, aware of pt bp reading. Dr. Hall gave pt 100 mcg phenylephrine IV. Pt in stable condition.
--- NOTE | 2018-12-05 15:43 | SUR.PHASEI ---
Bedside report given to SHAUN Schaeffer on acute care floor. Pt in stable condition, vss. Pt family at bedside. Drsg observed to be c/d/i. Pt alert and talking to RN when spoken to. Transferred care of pt to SHAUN Schaeffer at that time.
[2018-12-05] MEDS: LACTATED RINGERS 1,000 ML 125 ML IV (15:52)
[2018-12-05] MEDS: GABAPENTIN 300 MG CAPSULE PO ×2 (16:03→21:12)
--- NOTE | 2018-12-05 16:07 | PC.ADMIT ---
[id number] [facility] Admission Note: The patient,Jorge Jensen,78 y/o, was given written information regarding hospital policies, unit procedures and contact persons. Patient's smoking status: Never smoker. Vital Signs - 8 hr 12/05/18 13:43 12/05/18 13:48 12/05/18 13:53 Temperature 98.4 F Pulse Rate 91 H 90 91 H Respiratory Rate 16 14 15 Blood Pressure 128/74 121/68 Pulse Oximetry 100 100 100 12/05/18 13:58 12/05/18 14:03 12/05/18 14:08 Temperature Pulse Rate 91 H 60 60 Respiratory Rate 14 12 17 Blood Pressure 123/67 108/57 L 89/58 L Pulse Oximetry 100 94 100 12/05/18 14:13 12/05/18 14:18 12/05/18 14:23 Temperature 97.7 F Pulse Rate 60 60 60 Respiratory Rate 10 L 16 11 L Blood Pressure 106/55 L 79/53 L 110/50 L Pulse Oximetry 2 L 99 100 12/05/18 14:28 12/05/18 14:33 12/05/18 14:38 Temperature Pulse Rate 60 60 60 Respiratory Rate 9 L 10 L 9 L Blood Pressure 111/49 L 101/47 L 100/49 L Pulse Oximetry 100 97 99 12/05/18 14:43 12/05/18 14:53 12/05/18 15:08 Temperature Pulse Rate 59 L 60 60 Respiratory Rate 10 L 11 L 14 Blood Pressure 102/48 L 93/47 L 90/46 L Pulse Oximetry 99 96 91 12/05/18 15:13 12/05/18 15:23 12/05/18 15:35 Temperature 97.2 F L 98.0 F Pulse Rate 60 60 61 Respiratory Rate 11 L 13 15 Blood Pressure 98/48 L 97/46 L 115/49 L Pulse Oximetry 100 100 98 Patient up from surgery via bed. Drowsy but wakes easily for short times. Family at bedside.
[2018-12-05] MEDS: SENNOSIDES 8.6 MG TABLET 17.2 MG PO (21:12)
[2018-12-05] MEDS: DOCUSATE 100 MG CAPSULE PO (21:12)
[2018-12-05] MEDS: OXYBUTYNIN 5 MG ER TAB PO (21:13)
[2018-12-05] MEDS: HYDROCODONE/ACET 5/325 TABLET 1 TAB PO (21:18)
--- NOTE | 2018-12-05 22:24 | PC.NURSE ---
Flacc score 4/10, gave 1 tab of norco. IVF, SCDs. pt ate a little bit of pudding, but went back to sleep. VSS.
[2018-12-06] MEDS: LACTATED RINGERS 1,000 ML 125 ML IV ×2 (00:13→09:16)
[2018-12-06] MEDS: HYDROCODONE/ACET 5/325 TABLET 1 TAB PO ×5 (01:15→20:13)
--- NOTE | 2018-12-06 01:37 | PC.NURSE ---
Addendum entered by Ena Felix R.N. 12/06/18 06:25: Maintaining sat at 93-94% with 0.5ml oxygen. States pain is 5/10 so medicated with Vicodin. Whenever awake and questioned about anything patient very hesitant in responses and becomes restless/twitchy in extremities and then sats decline to upper 80's. Once left alone goes back to sleep and no restlessness/twitching noted. Addendum entered by Ena Felix R.N. 12/06/18 05:38: Has been sleeping since Vistaril given. O2 sat on 1L oxygen remaining in upper 90's so decreased oxygen at this time to 0.5L/min. Addendum entered by Ena Felix R.N. 12/06/18 03:48: BP low at 96/48 on left arm and is complaining of 7/10 pain; BP rechecked on right arm and is 104/44. Medicated with Vistaril as too early for Vicodin and want to avoid narcotics with low BP. Original Note: Patient is alert and oriented although responses are slightly delayed and shows hesitancy in answering question as though not quite sure of correct answer. Breath sounds CTA with sat of 98% on 2L/min oxygen so continuing to titrate down but to keep sat > 90%; on continuous oximetry. HRR. Denies nausea. BT present but denies flatus. Indwelling catheter is patent; urine is clear yellow. Being assisted to reposition q2h. Dressing to back is intact with right lower corner showing small amount serosanguinous drainage. Complains pain is now 4/10 so medicated with Vicodin. Wearing bilateral SCD's. Chronic bilateral foot numbness. Fall risk score is high and bed alarm is activated.
[2018-12-06] MEDS: CEFAZOLIN 1 GM/50 ML FROZ.PIGGY IV (03:42)
[2018-12-06] MEDS: hydrOXYzine pamoate 25 MG CAPSULE PO (03:45)
[2018-12-06 03:55] VITALS: BP 104/44; PULSE 60; RESP 18; TEMP 36.5; O2SAT 96
[2018-12-06 05:40] LABS: Hematocrit 25.8 % (36-46); Hemoglobin 8.5 g/dL (12.0-16.0)
[2018-12-06] MEDS: LEVOTHYROXINE 75 MCG TABLET PO (06:18)
[2018-12-06 07:40] VITALS: BP 100/81; PULSE 61; RESP 16; TEMP 37.3; O2SAT 94
--- NOTE | 2018-12-06 08:08 | PM.PNPO.1 ---
Subjective Subjective Date Patient Seen: 12/06/18 Time Patient Seen: 08:08 Interval history: Pain has not been bad, she has only required a few Vicodin overnight. However, she feels like she is searching for words. She does not feel confused, just difficulty finding the right words. She has numbness in her legs as well as some numbness and weakness in the hands. Exam Vital Signs (past 8 hours): - 12/06/18 03:55 Temperature 97.7 F Pulse Rate 60 Respiratory Rate 18 Blood Pressure 104/44 L Pulse Oximetry 96 Oxygen Delivery Method Nasal Cannula Oxygen Flow Rate 2 Const Orientation: alert and oriented x3 Limitations: language barrier Back/Spine/Pelvis Other: Moderate drainage. 5/5 motor both lower extremities. 5/5 motor both upper extremities except for 4/5 bilateral pheresis specialist. Objective Labs Result Diagrams: 12/06/18 04:40 Labs: Laboratory Results - last 24 hr 12/06/18 04:40 Hgb 8.5 L Hct 25.8 L Assessment & Plan Post-op Postoperative Procedures: Procedures Operation Date: 12/05/18 07:45 Actual Procedures Side Surgeon p T-10-12 & L3-S1 laminectomies, L4-S1 instrumented fusion (TLIF) with bone graft Not Applicable Ozzie Boyce MD She is having some hypotension. This may be coming from acute blood loss anemia or still residual from the epidural medication. She does not have any focal unilateral deficits on neurologic exam, her numbness in the arms is not unusual after a long surgery in the prone position and can be a mild brachial plexopathy. This usually resolves in 1 or 2 days. My main concern is her surgeon for words. This is not her baseline and is concerning for her. I am going to get a CT of her head. As long as there is no bleed we will just put her on aspirin. Quality VTE Deep Vein Thrombosis/Pulmonary Embolism Present on Admission: No
--- NOTE | 2018-12-06 08:27 | DI.CT.S_ITS ---
PROCEDURE: CT HEAD/BRAIN WO CON INDICATIONS: possible stroke, searching for words TECHNIQUE: Noncontrast 4.5 mm thick angled axial sections acquired from the foramen magnum to the vertex, with coronal and sagittal reformats. For radiation dose reduction, the following was used: automated exposure control, adjustment of mA and/or kV according to patient size. COMPARISON: [facility], MR, MR BRAIN WITHOUT CONTRAST, 03/15/2018, 20:04. [facility], CT, CT HEAD WITHOUT CONTRAST, 02/07/2018, 15:27. [facility], CT, CT HEAD WITHOUT CONTRAST, 03/15/2018, 13:35. [facility], CT, CT HEAD WITHOUT CONTRAST, 08/06/2018, 13:58. FINDINGS: Image quality: Excellent. CSF spaces: Basal cisterns are patent. No extra-axial fluid collections. The ventricles are symmetric in size and shape. Brain: No intracranial bleeds or masses. There is moderate cerebral volume loss for age, with resultant ventricular and sulcal prominence. There are moderate to severe periventricular and deep white matter chronic small vessel ischemic changes. There is an old lacunar infarct or dilated perivascular space the right basal ganglia, which appears unchanged from prior exams. There is intracranial internal carotid artery atherosclerosis. Skull and face: Calvarium and visualized facial bones appear intact, without suspicious lesions. Sinuses: Visualized sinuses and mastoids are clear. IMPRESSION: 1. No acute intracranial abnormalities. 2. Cerebral volume loss and chronic microvascular ischemic changes. Dictated by: Sommer Watkins M.D. on 12/06/2018 at 7:50 Approved by: Sommer Watkins M.D. on 12/06/2018 at 7:55
[2018-12-06] MEDS: DOCUSATE 100 MG CAPSULE PO ×2 (09:19→20:13)
[2018-12-06] MEDS: ASCORBIC ACID 500 MG TABLET PO (09:19)
[2018-12-06] MEDS: GABAPENTIN 300 MG CAPSULE PO ×3 (09:19→20:13)
[2018-12-06] MEDS: AMLODIPINE 5 MG TABLET PO (09:19)
[2018-12-06] MEDS: FUROSEMIDE 40 MG TABLET PO (09:19)
[2018-12-06] MEDS: CITALOPRAM 20 MG TABLET PO (09:20)
[2018-12-06] MEDS: CALCIUM CARBONATE 600 MG TABLET PO (09:20)
[2018-12-06 09:45] VITALS: O2SAT 94
[2018-12-06] MEDS: ASPIRIN 325 MG TABLET PO (11:19)
--- NOTE | 2018-12-06 12:01 | P.CONS_ITS ---
History of Present Illness Consult details Date Patient Seen: 12/06/18 Time Patient Seen: 12:01 Chief complaint: [id number] Reason for consult: speech diffculty after surgery Requesting provider: Ozzie Boyce Narrative: Jorge Jensen is an 78-year-old female with past medical history of CAD, sick sinus syndrome status post pacemaker, aortic stenosis, hypertension, hypothyroidism, depression, CKD, iron deficiency anemia who is admitted following T-10-12 & L3-S1 laminectomies, L4-S1 instrumented fusion (TLIF) with bone graft, she is currently postoperative day 1. This morning she was having difficulty with word finding, her surgeon ordered as CT head which was unchanged from previous examinations, Medicine was consulted for further evaluation. She received gabapentin yesterday and her 1st dose of [place] this morning at 11:00 a.m.. The patient currently complains of back pain, and when asked about trouble finding words she said, I guess I am. Administered an NIH stroke scale, for which she scored a 2, 1 for mild to moderate aphasia and another for mild-to- moderate dysarthria. Her granddaughter was present at bedside, and states that she is much slower than usual and is having difficulty finding words. Her granddaughter spoke with the patient over the phone last night and also noted difficulty finding words at that point, and noticed that still this morning. She is eventually able to say what she means, but it takes longer. She has noticed no slurred speech, facial droop, or focal weakness. The patient is limited in movement by pain currently, but feels that she is at her baseline. REPLACED BY [facility] Medical History (Updated 11/14/18 @ 10:10 by Gemini Lopez RN) Anemia (Acute) Anxiety (Acute) Aortic atherosclerosis (Acute) Aortic valve stenosis (Acute) Bradycardia (Acute) Cervical fusion syndrome (Acute) Cervical stenosis of spinal canal (Acute) Chronic kidney disease (Acute) Chronic left shoulder pain (Acute) DDD (degenerative disc disease), cervical (Acute) Depression (Acute) Disorder (Acute) Essential hypertension (Acute) Exertional dyspnea (Acute) Fatigue (Acute) Fracture of right wrist (Acute) Hiatal hernia (Acute) History of abdominal pain (Acute) History of nuclear stress test (Acute ~06/25/16) Hypothyroidism (Acute) Lower extremity edema (Acute) Lumbar radicular syndrome (Acute) Lumbar stenosis with neurogenic claudication (Acute) Osteoarthritis of left shoulder (Acute) Pacemaker (Acute 08/08/18) Pigmented skin lesion suspicious for malignant neoplasm (Acute) Pulmonary embolism (Acute ~2008) Radius fracture (Acute ~12/09/17) Recurrent epigastric abdominal pain (Acute) Rib pain on left side (Acute) SCC (squamous cell carcinoma) (Acute 11/08/18) Shingles (Acute 11/07/18) Spondylolisthesis, lumbar region (Acute) Stenosis of cervical spine with myelopathy (Acute) Traumatic closed fracture of ulnar styloid with minimal displacement (Acute) Weakness (Acute) Surgical History (Updated 11/14/18 @ 10:07 by Gemini Lopez RN) H/O bilateral cataract extraction (Acute) History of adenoidectomy (Acute) History of arthroplasty of right shoulder (Acute ~2008) History of hernia repair (Acute ~2008) History of knee surgery (Acute) S/P cervical spinal fusion (Acute 01/31/18) Social History household members: none Smoking Status: Never smoker alcohol intake: current Social History household members: none Smoking Status: Never smoker alcohol intake: current Meds Home Medications and Allergies Home Medications Medication Instructions Recorded Confirmed Type acetaminophen [Acetaminophen Extra 1,000 mg PO TID 01/24/18 12/05/18 History Strength] amlodipine 5 mg PO DAILY 01/24/18 12/05/18 History ascorbic acid (vitamin C) 500 mg PO DAILY 01/24/18 12/05/18 History calcium carbonate 600 mg PO DAILY 01/24/18 12/05/18 History citalopram 20 mg PO DAILY 01/24/18 12/05/18 History gabapentin 300 mg PO TID 01/24/18 12/05/18 History levothyroxine 75 mcg PO DAILY 01/24/18 12/05/18 History famotidine 20 mg PO BID 11/14/18 12/05/18 History oxybutynin chloride 5 mg PO BEDTIME 11/14/18 12/05/18 History patiromer calcium sorbitex 8.4 g PO DAILY 11/14/18 12/05/18 History [[place]] valacyclovir 1,000 mg PO TID PRN 11/14/18 12/05/18 History furosemide 40 mg PO DAILY 12/05/18 12/05/18 History Allergies Allergy/AdvReac Type Severity Reaction Status Date / Time No Known Drug Allergies Allergy Verified 12/05/18 06:49 Review of Systems Review of Systems Narrative: All other systems reviewed with the patient and are negative unless otherwise stated. Exam Vital Signs (past 8 hours): - 12/06/18 07:40 12/06/18 09:45 Temperature 99.1 F Pulse Rate 61 Respiratory Rate 16 Blood Pressure 100/81 Pulse Oximetry 94 94 Fraction of Inspired Oxygen 21 Oxygen Delivery Method Room Air Oxygen Flow Rate 0 Narrative Exam Narrative: GENERAL APPEARANCE: Well developed, well nourished, in no acute distress. SKIN: Inspection of the skin reveals no rashes, ulcerations or petechiae. HEENT: The sclerae were anicteric and conjunctivae were pink and moist. Extraocular movements were intact and pupils were equal, round with normal accommodation. External inspection of the ears and nose showed no scars, lesions, or masses. Lips, teeth, and gums showed normal mucosa. The oral mucosa, hard and soft palate, tongue and posterior pharynx were unremarkable. NECK: Supple and symmetric. There was no thyroid enlargement, and no tenderness, or masses were felt. No bruits were auscultated. CHEST: Normal AP diameter and normal contour without any kyphoscoliosis. LUNGS: Auscultation of the lungs revealed no wheezes, rhonchi, or rales. CARDIOVASCULAR: There was a regular rate and rhythm with a 3/6 systolic ejection murmur. ABDOMEN: Soft and nontender with normal bowel sounds. No ascites was noted. MUSCULOSKELETAL: There was no tenderness or effusions noted. Muscle strength and tone were normal. EXTREMITIES: No cyanosis, clubbing. Mild peripheral edema in the bilateral lower extremities. NEUROLOGIC: CN 2-12 Grossly intact bilaterally, NIH stroke scale of 2 (1 point for Mild to moderate aphasia and 1 point for mild to moderate dysarthria) Objective ECG Impression: Atrial paced rhythm, rate of 60. Labs Result Diagrams: 12/06/18 04:40 Labs: Laboratory Results - last 24 hr 12/06/18 04:40 Hgb 8.5 L Hct 25.8 L Assessment & Plan Assessment & Plan narrative: Jorge Jensen is an 78-year-old female with past medical history of CAD, sick sinus syndrome status post pacemaker, aortic stenosis, hypertension, hypothyroidism, depression, CKD, iron deficiency anemia who is admitted following T-10-12 & L3-S1 laminectomies, L4-S1 instrumented fusion (TLIF) with bone graft, she is currently postoperative day 1. Medicine was consulted for patient's aphasia and dysarthria. 1. Aphasia, acute -possibly secondary to new CVA. Differential includes TIA (pending improvement but likely to last longer than 24 hours), side effect of anesthesia yesterday, and she does have significant heart history but denies chest pain so ACS is unlikely. Her head CT was negative for acute changes and because of her pacemaker we are unable to obtain an MRI, but this CT does show an old infarct as well as microvascular changes. Last known normal was prior to operative interventions so she is outside window for any interventions at this time, and additionally she has a recent surgery. We will have to see if she improves over time. -check basic chemistries to rule out any electrolyte abnormalities including hyponatremia -will check CBC although patient does not have fever and do not suspect infectious etiologies at this time -EKG showing atrial paced rhythm, will check troponin as well. -would recommend repeat head CT in approximately 48 hours to see if any new lesions are evident, at the same time recommend a CTA head and neck if her kidney function allows this. -recommend PT/OT/speech eval -limit narcotics as much as possible -continue aspirin 81 mg daily -will check morning lipids, TSH, A1c 2. CAD - - lipitor 40 mg nightly - lipid panel as above 3. HTN - continue home amlodipine, lasix 4. Aortic stenosis - continue home lasix 5. Hypothyroidism - - f/u TSH as above - continue home levothyroxine 6. Depression - continue home citalopram. 7. Anemia, likely secondary to operative interventions. Unknown baseline. - obtain full CBC. 8. Stage IV CKD - obtain BMP as above DVT ppx per primary team Medicine Service will continue to follow.
--- NOTE | 2018-12-06 12:10 | PT.IIE ---
Current Diagnoses Spondylolisthesis, lumbar region (12/05/18) Spinal stenosis, thoracic region (12/05/18) Spinal stenosis, lumbar region with neurogenic claudication (12/05/18) Surgery Performed Operation Date: 12/05/18 07:45 Actual Procedures p T-10-12 & L3-S1 laminectomies, L4-S1 instrumented fusion (TLIF) with bone graft(Not Applicable) - Ozzie Boyce MD Surgical History (Last Updated 11/14/18 @ 10:07 by Gemini Lopez RN) H/O bilateral cataract extraction (Acute) History of adenoidectomy (Acute) History of arthroplasty of right shoulder (Acute ~2008) History of hernia repair (Acute ~2008) History of knee surgery (Acute) S/P cervical spinal fusion (Acute 01/31/18) Medical History (Last Updated 11/14/18 @ 10:10 by Gemini Lopez RN) Anemia (Acute) Anxiety (Acute) Aortic atherosclerosis (Acute) Aortic valve stenosis (Acute) Bradycardia (Acute) Cervical fusion syndrome (Acute) Cervical stenosis of spinal canal (Acute) Chronic kidney disease (Acute) Chronic left shoulder pain (Acute) DDD (degenerative disc disease), cervical (Acute) Depression (Acute) Disorder (Acute) Essential hypertension (Acute) Exertional dyspnea (Acute) Fatigue (Acute) Fracture of right wrist (Acute) Hiatal hernia (Acute) History of abdominal pain (Acute) History of nuclear stress test (Acute ~06/25/16) Hypothyroidism (Acute) Lower extremity edema (Acute) Lumbar radicular syndrome (Acute) Lumbar stenosis with neurogenic claudication (Acute) Osteoarthritis of left shoulder (Acute) Pacemaker (Acute 08/08/18) Pigmented skin lesion suspicious for malignant neoplasm (Acute) Pulmonary embolism (Acute ~2008) Radius fracture (Acute ~12/09/17) Recurrent epigastric abdominal pain (Acute) Rib pain on left side (Acute) SCC (squamous cell carcinoma) (Acute 11/08/18) Shingles (Acute 11/07/18) Spondylolisthesis, lumbar region (Acute) Stenosis of cervical spine with myelopathy (Acute) Traumatic closed fracture of ulnar styloid with minimal displacement (Acute) Weakness (Acute) Physical Therapy Inpatient Evaluation/Re-Eval M1 PT/OT-IP Prior Functional Status Start: 12/06/18 08:22 Freq: NEEDED Status: Active Protocol: Document 12/06/18 10:35 (Rec: 12/06/18 12:08 [email or web address]) Medical Review Prior Functional Status Medical History Reviewed Yes Diet/Fluid Consistency Regular Communication Word finding difficulties since this am. Pt's granddtr stated there's no deficits noted prior to sx. Mobility and Gait Granddtr stated pt needed her 4WW/SPC most of the time for home and community mobility, but she often used furnitures at home to cruise as well. She had at least 6 falls over the past half year. She often had help from neighbor to assist her to get to the shower since there's a threshold to enter. Activities of Daily Living and IADL's independent for ADLs with FWW/ SPC and DMEs but needed neighbor's assistance for house cleaning, grocery shopping. Grand dtr stated pt often drives too but she believes pt is not safe to drive. Social History Household Members none Living Arrangements House Number of Floors (Floors) Two Floors Number of Stairs To Enter/Railing? 1 CARLOS to house or a ramp to enter 12 steps with L rail to 2nd floor Home Environment High Toilet,Walk in Shower Home Equipment Four Wheel Walker,Straight Cane,Manual Wheelchair,Raised Toilet Seat w/Armrests,Shower Seat with Backrest,Hand Held Shower,Grab Bars Near Toilet, Grab Bars In Shower Employment Status Retired Additional Social History Comment Pt is a and 6 years ago. Grand dtr stated pt is very sensitive talking about her . Grand dtr reports pt is very impulsive and does not like to get help which is the main reason of her multiple falls. Pt does have a neighbor came in once/day to check on her and did some IADLs for pt. M2 PT-IP Current Condition Start: 12/06/18 08:22 Freq: NEEDED Status: Active Protocol: Document 12/06/18 10:35 (Rec: 12/06/18 12:08 [email or web address]) Physical Therapy Current Condition Current Condition Evaluation Date 12/06/18 Treatment Diagnosis T10-12&L3-S1 laminectomies, L4 -S1 TLIF, difficulty in walking, fall risks Onset Date 12/05/18 Precautions Lumbar Precautions Log Roll,No Twisting,Limit Bending,Lifting Restriction of 10 lbs,Gait Belt above Incisional Area Weight Bearing Status Weight Bearing Status Weight Bear as Tolerated M3 PT-IP Subjective Start: 12/06/18 08:22 Freq: NEEDED Status: Active Protocol: Document 12/06/18 10:35 HH (Rec: 12/06/18 12:08 [email or web address]) Subjective Physical Therapy Visit Type Type Initial Evaluation Visit Start Time 10:35 Visit Stop Time 11:20 Total Visit Minutes 45 Notes Felix catheter, IV on RUE in place. Per RN, Pt has difficulty finding words since this AM. BP remains low 90s/ 50s and SpO2 ~85-92 without NC . Pt's grand dtr and son in law attened session Number of GARDE MANGER Visits 0 Physical Therapy Visit Comments Patient Comments It's very uncomfortable for my back. I want to move. Patient Goals To go home Therapy Pain Assessment Pain When Pain Assessed During Mobility Pain Present Pain Present Unable to Respond FLACC Pain Scale Face Occasional grimace/frown Location Lower Back Scale Used Wang-Hayes (Faces) Description Acute Pain Management Techniques Apply Cold,Timing of Activity with Medications M4 PT-IP Mobility and Gait Start: 12/06/18 08:22 Freq: NEEDED Status: Active Protocol: Document 12/06/18 10:35 HH (Rec: 12/06/18 12:08 [email or web address]) PT-Bed Mobility Assessment Rolling Type of Rolling Roll to Left Level of Assist Maximal Assistance,1 Person Assistance Supine to Sit Supine to Sit Maximum Assistance,1 Person Assistance,Bedrails Scooting Scooting to Edge of Bed Maximum Assistance PT-Transfer Assessment Sit to and From Stand Sit to and from Stand Moderate Assistance,2 Person Assistance,Use of Upper Extremities Equipment Transfer Assistive Device Gait Belt,Front Wheeled Walker Orthotic/Prosthetic Devices or Brace: No Transfers Transfer Destination Bed,Chair Transfer Technique Stand Step Pivot Transfer Ability Level of Assist Moderate Assistance,2 Person Assistance,Use of Upper Extremities Comments Mobility Comments Supine BP= 83/50 SpO2 85% without NC, BP went up to 96/ 43 with NC on 3L/min and SpO2 94%. Post tx session BP = 100/ 48, SpO2 = 95% without NC. Pt was in supine upon assessment, pt has difficulty finding words but she is Ax O x3. Educated pt's post op precautions, but pt seems like being unable to retain information. She was very fidgety and impulsive during the entire session and required constant cues to slow her down and for safety awareness. Pt needed max A x 1p to roll her to L side but she often wanted to pivot her legs off the bed before supine to sit. She then used bed rail to sit up with max A x1 but unable to scoot to EOB. Used bed pad to assist and verbally cue pt multiple times to use bed rail for sitting balance. RN came in and assisted pt to transfer to chair on her L side. Max cues needed for hand placements and sequencing for steps. Pt buckled twice during stand pivot L>R and had very limited feet clearance. Max A x 2pa to assist for stand to sit and reclined her to comfort position. Pt felt sorry for her current progress. Educated her to slow down for bed mobility and transfer activtiies to prevent falls. Gait Assessment Comments Gait Comments unable to assess Stair Climbing Assessment Comments Stair Climbing Comments unable to assess PT-Balance Assessment Sitting Balance and Reactions Static Sitting Balance Ability Good Dynamic Sitting Balance Ability Fair Standing Balance and Reactions Static Standing Balance Ability Poor Dynamic Standing Balance Ability Poor Device Used FWW M5 PT-IP Objective Assessments Start: 12/06/18 08:22 Freq: NEEDED Status: Active Protocol: Document 12/06/18 10:35 (Rec: 12/06/18 12:08 [email or web address]) Orientation Orientation/Cognition Level of Alertness Alert Orientation Name,Age,Birthday,Month,Date, Year,Day of Week,Place, Situation Language Function Ability Word Finding Difficulties Safety Awareness Decreased Safety Awareness Memory Description Short Term Impaired Comments unable to retain post op precautions Gross Range of Motion Upper Extremity ROM Assessment Bilaterally Impaired Impairments L arm unable to lift pass shoulder level Lower Extremity ROM Assessment Bilaterally Impaired Strength Upper Extremity Strength Assessment Bilaterally Impaired Lower Extremity Strength Assessment Bilaterally Impaired Comments Strength Comments B UEs 3/5 B UEs 3-/5 Coordination Assessment Gross Coordination Gross Coordination WNL Sensation Assessment Sensation Gross Sensation WNL M6 PT-IP Treatment Start: 12/06/18 08:22 Freq: NEEDED Status: Active Protocol: Document 12/06/18 10:35 (Rec: 12/06/18 12:08 [email or web address]) Physical Therapy Treatment Education Education Provided Precautions,Weight Bearing Status,Post-Op Packet,Safety M7 PT-IP Assessment and Plan Start: 12/06/18 08:22 Freq: NEEDED Status: Active Protocol: Document 12/06/18 10:35 (Rec: 12/06/18 12:08 [email or web address]) PT Summary Assessment and Plan Potential Rehabilitation Potential Good Status of Condition at Evaluation Evolving Summary Impairments Pain,ROM,Strength,Balance,Bed Mobility,Transfers,Gait, Activity Tolerance Assessment Summary Pt is a high complexity who is post/op T10-12&L3-S1 laminectomies, L4-S1 TLIF. Upon assessment, pt has difficulty finding words and appears very impulsive with fidgelty. She needed constant cues for safety awareness, hand placements and sequencing for mobility, along with max A for bed mobiltiy and transfers. She buckled 3 times during chair transfer so recommended nursing to use dax lift/ stander for transfer at this point. However, pt's vital sign did stabilize after mobility and she denied of any dizziness/ lightheandness. Pt's grand dtr and son in low provided pt's social hx and PLOF, and they both concerned pt's ability to self care with her high fall risks. Dicussed with them and they agreed with the option of d/c to SNF to improve mobility and strength prior to d/c home. Goals Bed Mobility Goal Minimal Assistance Transfer Goal Minimal Assistance,Front Wheeled Walker Gait Goal Minimal Assistance,Front Wheel Walker Gait Distance 50 Other Goals 1 CARLOS with L rail Days to Meet Goals 10 Frequency of Treatment Frequency Of Treatment Twice a Day Treatment Plan Physical Therapy Treatment Plan Bed Mobility Training,Transfer Training,Gait Training, Therapeutic Exercise,Balance Retraining,Post Op Education, Discharge Planning,Hot or Cold Pack,Neuromuscular Re-ed Other Recommendations and Next Treatment review post op precautions Focus log roll check VSS bed mob and transfer as carlee Recommendations To Nursing Amount of Assist Needed PT/OT Assist Only,Mechanical Lift,Power Sit-Stand Discharge Recommendations PT Discharge Recommendations SNF Rehab
[2018-12-06 12:36] LABS: Add Manual Diff / Slide Review NO; Basophils Absolute Auto 100 /uL (0-100); Basophils Percent Auto 0.5 % (0-2); Eosinophils Absolute Auto 200 /uL (0-450); Lymphocytes Absolute Auto 400 /uL (1100-4500); Mean Corpuscular HGB Conc 32.4 % (30-36); Mean Corpuscular Hemoglobin 32.1 PG (26-34); Monocytes Absolute Auto 500 /uL (0-900); Neutrophils Absolute Auto 10700 /uL (1500-7000); Neutrophils Percent Auto 90.5 % (50-75); Platelet Count 156 X10^3/uL (150-400); Red Blood Cell Count 2.49 X10^6/uL (4.0-5.2); Red Cell Distribution Width 13.6 % (11.6-14.8); White Blood Cell Count 11.9 X10^3/uL (4.5-11.0)
[2018-12-06 12:38] LABS: Hematocrit 24.7 % (36-46)
[2018-12-06 13:05] LABS: Magnesium 1.8 mg/dL (1.6-2.3)
[2018-12-06 13:06] LABS: BUN Creatinine Ratio 21.9 (6-22); Blood Urea Nitrogen 35 mg/dL (7-17); Calcium 8.8 mg/dL (8.4-10.2); Carbon Dioxide 24 mmol/L (22-32); Chloride 103 mmol/L (98-107); Glucose 135 mg/dL (80-110); HEMOLYSIS < 15 (0-50); Potassium 4.5 mmol/L (3.4-5.1); Sodium 135 mmol/L (137-145); Troponin I 0.014 ng/mL (0.01-0.034)
[2018-12-06 13:40] VITALS: BP 99/47; PULSE 73; RESP 20; TEMP 37.5; O2SAT 91
--- NOTE | 2018-12-06 14:00 | ST.IPIE ---
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 Mcmullen Reason for Referral New onset word finding difficulty Past Medical History Patient History Patient is post-op day 1 and is having difficulty with word finding. 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 She can not have an MRI due to pacemaker. Differential diagnosis per Dr. Mcmullen includes TIA, side effect of anesthesia yesterday , ACS. Vision Vision Status Not Impaired Oral Motor Examination Oral Motor Exam Completed Yes Results Mild lingual deviation upon protrusion, some discoordination during all tasks with groping observed. Occasional loss of bolus from left side of mouth during straw sip of water. Subjective Subjective Mrs. Jensen was sitting up in the chair in her room facing the window. She agreed to participate in an evaluation. She was observed to be fumbling with her water cup, having a difficult time holding it. - Informal Assessment Receptive Language Normal Yes Expressive Language Normal No: Reduced utterance length Articulation Normal No: Intelligible speech with some paraphasias Cognition Normal No: Difficulty with attention to tasks, impaired executive functions Assessment Findings Attempted to administered [place] Cognitive Assessment; however, patient was unable to complete. She had significant difficulty holding the pen with jerking movements causing the pen to fall out of her hand and making it difficult for her to write or even draw lines. When attempted to complete the trail making task verbally, she was not able to tell me the next step in the sequence 1,A,2,B. During clock drawing, she repeated number 7,8 , but number 12,3,6 and 9 were positioned correctly. She was not able to correctly place hand markers to show ten past eleven. She named animal lion, rhino and camel correctly, and named common objects correctly, but exhibited two paraphasias: downs for lion and tissors for scissors. She also required extra time for naming common objects such as flashlight and phone. During attention tasks, she incorrectly repeated numbers during forward and backward digit span and was only able to complete the first step in serial 7 subtraction stating oh goodness, this is terrible . She was oriented to self, place and date. She had difficulty with verbal expression of some simple and more complex thoughts, but occasionally got words out to form a sentence such as it keeps jerking when she tried to hold the pen for the third time. She followed simple directions and answered simple yes/no question. Recommendations Ongoing speech and language evaluation and treatment to improve basic communication in this environment to decrease frustration or anxiety surrounding new onset of word finding difficulty. Also recommend complete swallow evaluation to assess swallow safety and provide compensatory strategy training as needed. - Treatment Goals Short Term Goals [place] will formulate sentences with given words related to her personal needs, ADL?s and safety with 80% effectiveness to improve communication of basic wants/needs.
--- NOTE | 2018-12-06 14:50 | PT.IPTN ---
Current Diagnoses Spondylolisthesis, lumbar region (12/05/18) Spinal stenosis, thoracic region (12/05/18) Spinal stenosis, lumbar region with neurogenic claudication (12/05/18) Surgery Performed Operation Date: 12/05/18 07:45 Actual Procedures p T-10-12 & L3-S1 laminectomies, L4-S1 instrumented fusion (TLIF) with bone graft(Not Applicable) - Ozzie Boyce MD Physical Therapy Treatment Note M2 PT-IP Current Condition Start: 12/06/18 08:22 Freq: NEEDED Status: Active Protocol: Document 12/06/18 10:35 HH (Rec: 12/06/18 12:08 [id number]) Physical Therapy Current Condition Current Condition Evaluation Date 12/06/18 Treatment Diagnosis T10-12&L3-S1 laminectomies, L4 -S1 TLIF, difficulty in walking, fall risks Onset Date 12/05/18 Precautions Lumbar Precautions Log Roll,No Twisting,Limit Bending,Lifting Restriction of 10 lbs,Gait Belt above Incisional Area Weight Bearing Status Weight Bearing Status Weight Bear as Tolerated M3 PT-IP Subjective Start: 12/06/18 08:22 Freq: NEEDED Status: Active Protocol: Document 12/06/18 14:50 GGD (Rec: 12/06/18 17:05 GGD [id number]) Subjective Physical Therapy Visit Type Type Treatment Note Visit Start Time 14:35 Visit Stop Time 14:50 Total Visit Minutes 20 Physical Therapy Visit Comments Patient Comments Pt states she would like to go back to bed. Therapy Pain Assessment Pain When Pain Assessed During Mobility Pain Present Pain Present Pain Reported Location Lower Back Intensity 4 Scale Used Numeric (1 - 10) M4 PT-IP Mobility and Gait Start: 12/06/18 08:22 Freq: NEEDED Status: Active Protocol: Document 12/06/18 14:50 GGD (Rec: 12/06/18 17:05 GGD [id number]) PT-Bed Mobility Assessment Sit to Supine Sit to Supine Maximum Assistance,2 Person Assistance Scooting Scooting to Edge of Bed Moderate Assistance Scooting Up and Down in Bed Dependent PT-Transfer Assessment Sit to and From Stand Sit to and from Stand Moderate Assistance,2 Person Assistance,Use of Upper Extremities Equipment Transfer Assistive Device Gait Belt,Front Wheeled Walker Orthotic/Prosthetic Devices or Brace: No Transfers Transfer Destination Bed Transfer Technique Stand Step Pivot Transfer Ability Level of Assist Moderate Assistance,2 Person Assistance,Use of Upper Extremities Gait Assessment Gait Gait Assistance Required: Moderate Assistance,Maximum Assistance,2 Person Assist Distance (Feet) 3 Able to Maintain Weight Bearing Status Yes During Gait Assistive Devices Assistive Device Gait Belt,Front Wheeled Walker Orthotic/Prosthetic Devices or Brace: Yes Gait Deviations General Gait Pattern Decreased Stride Length, Decreased Feet Clearance, Flexed Trunk Factors Limiting Gait Function Factors Limiting Gait Function Decreased Activity Tolerance, Decreased Strength, Incoordination,Pain,Poor Balance Comments Gait Comments Pt had B knee buckling with ambulation needing mod to max A. M5 PT-IP Objective Assessments Start: 12/06/18 08:22 Freq: NEEDED Status: Active Protocol: Document 12/06/18 10:35 HH (Rec: 12/06/18 12:08 [id number]) Orientation Orientation/Cognition Level of Alertness Alert Orientation Name,Age,Birthday,Month,Date, Year,Day of Week,Place, Situation Language Function Ability Word Finding Difficulties Safety Awareness Decreased Safety Awareness Memory Description Short Term Impaired Comments unable to retain post op precautions Gross Range of Motion Upper Extremity ROM Assessment Bilaterally Impaired Impairments L arm unable to lift pass shoulder level Lower Extremity ROM Assessment Bilaterally Impaired Strength Upper Extremity Strength Assessment Bilaterally Impaired Lower Extremity Strength Assessment Bilaterally Impaired Comments Strength Comments B UEs 3/5 B UEs 3-/5 Coordination Assessment Gross Coordination Gross Coordination WNL Sensation Assessment Sensation Gross Sensation WNL M6 PT-IP Treatment Start: 12/06/18 08:22 Freq: NEEDED Status: Active Protocol: Document 12/06/18 14:50 GGD (Rec: 12/06/18 17:05 GGD [id number]) Physical Therapy Treatment Education Education Provided Precautions M7 PT-IP Assessment and Plan Start: 12/06/18 08:22 Freq: NEEDED Status: Active Protocol: Document 12/06/18 14:50 GGD (Rec: 12/06/18 17:05 GGD [id number]) PT Summary Assessment and Plan Summary Assessment Summary Pt improving with mobility slowly. She was able to progress mobility. She did have LE buckling with gait and need max A. Pt would benefit from SNF to improve functional mobility. Frequency of Treatment Frequency Of Treatment Twice a Day Treatment Plan Physical Therapy Treatment Plan Bed Mobility Training,Transfer Training,Gait Training, Therapeutic Exercise,Balance Retraining,Post Op Education, Discharge Planning,Hot or Cold Pack,Neuromuscular Re-ed Recommendations To Nursing Amount of Assist Needed 2 Person Assist Discharge Recommendations PT Discharge Recommendations SNF Rehab
[2018-12-06 16:00] VITALS: BP 107/45; PULSE 65; RESP 18; TEMP 36.9; O2SAT 95
--- NOTE | 2018-12-06 16:16 | CM.DANOTE ---
DCP: assessment: case received, EMR reviewed. OT and PT are seeing pt for first time today. OT note not yet available. PT Isaias is recommending snf stay before a return to the home setting. Went to room to check in with pt. RN is doing assessment: requests that this DCPlanner return later. As CM dept is now closed for day will check in the morning and follow up for discussion of d/c issues and options. INPT admission status: Payer: Medicare and [facility] so pt is well positioned for various d/c options.
--- NOTE | 2018-12-06 17:32 | OT.IP.EVAL ---
Current Diagnoses Spondylolisthesis, lumbar region (12/05/18) Spinal stenosis, thoracic region (12/05/18) Spinal stenosis, lumbar region with neurogenic claudication (12/05/18) Surgery Performed Operation Date: 12/05/18 07:45 Actual Procedures p T-10-12 & L3-S1 laminectomies, L4-S1 instrumented fusion (TLIF) with bone graft(Not Applicable) - Ozzie Boyce MD Past Medical History (Last Updated 11/14/18 @ 10:10 by Gemini Lopez RN) Anemia (Acute) Anxiety (Acute) Aortic atherosclerosis (Acute) Aortic valve stenosis (Acute) Bradycardia (Acute) Cervical fusion syndrome (Acute) Cervical stenosis of spinal canal (Acute) Chronic kidney disease (Acute) Chronic left shoulder pain (Acute) DDD (degenerative disc disease), cervical (Acute) Depression (Acute) Disorder (Acute) Essential hypertension (Acute) Exertional dyspnea (Acute) Fatigue (Acute) Fracture of right wrist (Acute) Hiatal hernia (Acute) History of abdominal pain (Acute) History of nuclear stress test (Acute ~06/25/16) Hypothyroidism (Acute) Lower extremity edema (Acute) Lumbar radicular syndrome (Acute) Lumbar stenosis with neurogenic claudication (Acute) Osteoarthritis of left shoulder (Acute) Pacemaker (Acute 08/08/18) Pigmented skin lesion suspicious for malignant neoplasm (Acute) Pulmonary embolism (Acute ~2008) Radius fracture (Acute ~12/09/17) Recurrent epigastric abdominal pain (Acute) Rib pain on left side (Acute) SCC (squamous cell carcinoma) (Acute 11/08/18) Shingles (Acute 11/07/18) Spondylolisthesis, lumbar region (Acute) Stenosis of cervical spine with myelopathy (Acute) Traumatic closed fracture of ulnar styloid with minimal displacement (Acute) Weakness (Acute) Surgical History (Last Updated 11/14/18 @ 10:07 by Gemini Lopez RN) H/O bilateral cataract extraction (Acute) History of adenoidectomy (Acute) History of arthroplasty of right shoulder (Acute ~2008) History of hernia repair (Acute ~2008) History of knee surgery (Acute) S/P cervical spinal fusion (Acute 01/31/18) Occupational Therapy Inpatient Evaluation/Re-Eval M1 PT/OT-IP Prior Functional Status Start: 12/06/18 17:03 Freq: NEEDED Status: Active Protocol: Document 12/06/18 17:04 [facility] (Rec: 12/06/18 17:32 [facility] [id number]) Medical Review Prior Functional Status Medical History Reviewed Yes Diet/Fluid Consistency Regular Communication Word finding difficulties since this am. Pt's granddtr stated there's no deficits noted prior to sx. Mobility and Gait Granddtr stated pt needed her 4WW/SPC most of the time for home and community mobility, but she often used furnitures at home to cruise as well. She had at least 6 falls over the past half year. She often had help from neighbor to assist her to get to the shower since there's a threshold to enter. Activities of Daily Living and IADL's independent for ADLs with FWW/ SPC and DMEs but needed neighbor's assistance for house cleaning, grocery shopping. Grand dtr stated pt often drives too but she believes pt is not safe to drive. Social History Household Members none Living Arrangements House Number of Floors (Floors) Two Floors Number of Stairs To Enter/Railing? 1 CARLOS to house or a ramp to enter 12 steps with L rail to 2nd floor Home Environment High Toilet,Walk in Shower Home Equipment Four Wheel Walker,Straight Cane,Manual Wheelchair,Raised Toilet Seat w/Armrests,Shower Seat with Backrest,Hand Held Shower,Grab Bars Near Toilet, Grab Bars In Shower Employment Status Retired Additional Social History Comment Pt is a and 6 years ago. Grand dtr stated pt is very sensitive talking about her . Grand dtr reports pt is very impulsive and does not like to get help which is the main reason of her multiple falls. Pt does have a neighbor came in once/day to check on her and did some IADLs for pt. M2 OT-IP Current Condition Start: 12/06/18 17:03 Freq: Status: Active Protocol: Document 12/06/18 17:04 [facility] (Rec: 12/06/18 17:32 [facility] [id number]) Occupational Therapy Current Condition Current Condition Evaluation Date 12/06/18 Treatment Diagnosis T10-11, T11-12 laminectomies, L4-5, L5-S1 TLIF, decreased self-care and cog Diagnosis Onset Date 12/05/18 Post Operative Precautions Lumbar Precautions Log Roll,No Twisting,Limit Bending,Lifting Restriction of 10 lbs,Gait Belt above Incisional Area Weight Bearing Status Weight Bearing Status Weight Bear as Tolerated M3 OT- IP Subjective and Pain Start: 12/06/18 17:03 Freq: Status: Active Protocol: Document 12/06/18 17:04 [facility] (Rec: 12/06/18 17:32 [facility] [id number]) OT- Subjective Occupational Therapy Visit Type Type Initial Evaluation Visit Start Time 14:35 Visit Stop Time 15:05 Total Visit Minutes 30 Occupational Therapy Visit Comments Patient Comments Pt wanting to get back to bed. Patient/Caregiver Goals Pt wanting to go to skilled rehab prior to going home. OT Pain Assessment Pain When Pain Assessed At Rest Pain Present Pain Present Denied Pain M4 OT- IP ADL's Start: 12/06/18 17:03 Freq: Status: Active Protocol: Document 12/06/18 17:04 [facility] (Rec: 12/06/18 17:32 [facility] [id number]) OT ADL-Grooming General Evaluation Grooming Ability Minimal Assistance Areas Needing Assistance Retrieving/Set-up of Grooming Items Comments OT Grooming Comments Set-up for grooming needs , MOD vc to help sequence through the task. Noted food residue after pt spitting from brushing her teeth, informed nursing so that they can keep a close eye on her in case of pocketing food. OT ADL-Oral Care General Eval Oral Care Ability Independent Devices Oral Care Devices Toothbrush OT ADL-Dressing General Eval Lower Body Dressing Ability Maximum Assistance Areas Needing Assistance Socks OT ADL-Toileting Comments OT Toileting Comments Pt has pablo in. OT ADL-Bathing Comments OT Bathing Comments At this time sponge bath more appropriate. M5 OT- IP IADL's Start: 12/06/18 17:03 Freq: Status: Active Protocol: Document 12/06/18 17:04 [facility] (Rec: 12/06/18 17:32 [facility] [id number]) OT-Instrumental Activities of Daily Living Home Safety Awareness Home Safety Comments At this time due to having difficulty with functional cognition and sequencing through steps of ADl's and needing extensive assist for transfers, pt will need assist for all IADL's at this time. M6 OT- IP Functional Cognition Start: 12/06/18 17:03 Freq: Status: Active Protocol: Document 12/06/18 17:04 [facility] (Rec: 12/06/18 17:32 [facility] [id number]) Cognitive Factors Limiting Selfcare Function Cognitive Ability Level of Alertness Alert Patient Orientation Name,Place,Situation Attention Span Ability Capable of Focused Attention Ability to Follow Commands Able to Follow One Step Commands Memory Description Short Term Impaired Safety Awareness Decreased Recall of Precautions,Decreased Ability to Apply Precautions, Underestimates Need for Assistance Problem Solving Ability Unable to Identify Errors, Needs Assist to Identify Solutions Cognitive Comments Cognitive Assessment Comments Pt needing increased time and cues to initiate task to brush her teeth, in addition vc to help sequence through the task for completeness. Pt needing step by step instructions for coming to stand and bed mobility needs. Pt having some word finding difficulties and unable to recall any back precautions even after education. OT- Vision and Hearing OT- Hearing Assessment OT- Hearing Assessment WFL OT- Vision Assessment Vision Assessment Comments Pt able to read the clock accurately. M7 OT- IP Mobility and Balance Start: 12/06/18 17:03 Freq: Status: Active Protocol: Document 12/06/18 17:04 [facility] (Rec: 12/06/18 17:32 [facility] [id number]) OT- Bed Mobility Assessment Sit to Supine Sit to Supine Assist Maximum Assistance,2 Person Assistance OT-Transfer Assessment Sit to and From Stand Sit to and from Stand Maximum Assistance,2 Person Assistance Transfers Transfer Ability Maximum Assistance,2 Person Assistance Technique Transfer Destination Bed,Chair Transfer Technique Stand Step Pivot Devices Transfer Assistive Devices Gait Belt,Front Wheeled Walker Comments Mobility Comments MAX A X 2 to help come to stand, steady FWW, help keep pt upright and MAX vc for safety. Pt during transfer buckled at her knees and not able to catch herself and needing therapist assist to help keep her upright. OT- Balance Assessment Sitting Balance and Reactions Static Sitting Balance Ability Fair Standing Balance and Reactions Static Standing Balance Ability Poor Dynamic Standing Balance Ability Poor M8 OT- IP Objective Assessments Start: 12/06/18 17:03 Freq: Status: Active Protocol: Document 12/06/18 17:04 [facility] (Rec: 12/06/18 17:32 [facility] [id number]) OT Gross Range of Motion Upper Extremity Range of Motion Assessment Right Impaired ROM Impairments Pt's RUE 10 degress in scaption, WFL from elbow to distal, LUE WFL OT Strength Comments Strength Comments RUE 3-/5 to 4-/5, LUE 4-/5 throughout. OT- Coordination Assessment Upper Extremity Finger to Nose Test Right UE Impaired Comments Coordination Comments Increased time to touch nose with right hand and slightly off. Able to do finger to thumb coordination with both hands. OT-Muscle Tone Assessment Muscle Tone WNL Yes Comments Muscle Tone Comments Pt at rest has a tremor and tends to be unsteady when trying to reach out to touch therapist's hand. OT Sensation Assessment Comments Summary Comments RUE impaired for light touch throughout and even when left hand touched would state right hand being touched. Pt describes the sensation of numbness and tingling RUE> LUE . M9 OT- IP Assessment and Plan Start: 12/06/18 17:03 Freq: Status: Active Protocol: Document 12/06/18 17:04 [facility] (Rec: 12/06/18 17:32 [facility] [id number]) OT Summary Assessment and Plan Potential Rehabilitation Potential Fair Analytic Complexity at Evaluation Moderate Summary OT Impairments Pain,Strength,Balance, Sensation,Functional Cognition ,Functional Mobility,Self- Feeding,Grooming,Dressing, Toileting,Bathing,Toilet Transfers,Shower Transfers Progress Towards Goals Slow Progress due to Pain,Slow Progress due to Medical Issues,Slow Progress due to Activity Tolerance,Slow Progress due to Cognition Assessment Summary Pt MOD complexity due to new per pt word finding difficulties, having trouble with functional cognition, and also needing extensive assist x 2 for transfers and bed mobility. Pt's knees tend to buckle while standing as pt is a high fall risk and not safe to go home as prior she lives alone. Pt will benefit from skilled rehab prior to going home. Goals Self-Feeding Goal Standby Assistance Grooming Goal Standby Assistance Dressing Goal Moderate Assistance Toileting Goal Moderate Assistance Bathing Goal Moderate Assistance Toilet Transfer Goal Moderate Assistance Shower Transfer Goal Moderate Assistance OT-Other Goals grooming goal in sitting Days to Meet Goals 10 Frequency of Treatment Frequency Of Treatment Once a Day Treatment Plan OT Treatment Plan ADL Training,Functional Cognition Training,Functional Mobility,Patient/Family Education,Discharge Planning Other Treatment Recommendations and Next Pt to be be able to eat with Treatment Focus increased time and assist for set-up. Discharge Recommendations OT Discharge Recommendations SNF Rehab Home Equipment Needs defer to SNF
[2018-12-06] MEDS: SENNOSIDES 8.6 MG TABLET 17.2 MG PO (20:13)
[2018-12-06] MEDS: OXYBUTYNIN 5 MG ER TAB PO (20:14)
[2018-12-06 20:37] VITALS: BP 128/51; PULSE 71; RESP 18; TEMP 36.9
--- NOTE | 2018-12-06 21:28 | PC.NURSE ---
A&OX3, forgetful. pt still having difficulty finding words. bilat feet and hands are tingly and numb. q2turn. pain controlled with norco. pablo patent. she had difficulty using her toothbrush. She was able to feed herself. no facial droop, shank cementer hand are equal and firm, no drift. call light in reach. bed alarm active.
[2018-12-06] MEDS: ACETAMINOPHEN 325 MG TABLET 975 MG PO (22:00)
[2018-12-07] VITALS (9 sets, daily range): BP systolic 94–141; BP diastolic 42–95; PULSE 60–67; RESP 16–18; TEMP 36.4–36.9; O2SAT 90–97
[2018-12-07] MEDS: HYDROCODONE/ACET 5/325 TABLET 1 TAB PO ×4 (00:27→21:50)
--- NOTE | 2018-12-07 02:18 | PC.NURSE ---
Addendum entered by Ena Felix R.N. 12/07/18 05:35: Patient assisted to reposition q2h. This morning states pain is 5/10 and is wincing with movement and grimacing; medicated with Vicodin and ice applied after being repositioned. Original Note: 0100 Patient assessed. Is drowsy and needing frequent cueing to follow directions. Speech is delayed and has difficulty with word finding. NIH score is 5 but assessment difficult to score due to limited ROM in bilateral UE right > left and due to recent surgery making it difficult for her to maintain leg elevation. TRANSPORT CONDUCTOR made aware of change in score with no new orders. Breath sounds CTA with RA sat of 90% so restarted on oxygen at 1L/min with sat at 96%. HRR. Denies nausea. Has active BT but denies flatus. Indwelling catheter is patent; urine pale yellow. Is able to assist with repositioning. Dressing to back with no new drainage. Complains of 5/10 pain so medicated with Vicodin, repositioned and ice pack applied. Chronic bilateral foot numbness. Foot SCD's reapplied at shift change and still on. Fall risk score is high and bed alarm is activated.
[2018-12-07] MEDS: LEVOTHYROXINE 75 MCG TABLET PO (05:24)
[2018-12-07 05:52] LABS: Cholesterol 122 mg/dL (140-199); HDL Cholesterol 50 mg/dL (40-60); LDL Cholesterol Calculated 59 mg/dL (<100); Triglycerides 66 mg/dL (35-150)
[2018-12-07 05:53] LABS: BUN Creatinine Ratio 21.6 (6-22); Blood Urea Nitrogen 41 mg/dL (7-17); Calcium 8.9 mg/dL (8.4-10.2); Carbon Dioxide 27 mmol/L (22-32); Chloride 103 mmol/L (98-107); Estimated Glomerular Filt Rate 25.4 mL/min (>60); Glucose 106 mg/dL (80-110); HEMOLYSIS < 15 (0-50); Magnesium 2.1 mg/dL (1.6-2.3); Potassium 4.1 mmol/L (3.4-5.1); Sodium 136 mmol/L (137-145)
[2018-12-07 05:54] LABS: Add Manual Diff / Slide Review NO; Basophils Absolute Auto 0 /uL (0-100); Basophils Percent Auto 0.4 % (0-2); Eosinophils Absolute Auto 600 /uL (0-450); Eosinophils Percent Auto 6.1 % (2-4); Hemoglobin 7.9 g/dL (12.0-16.0); Lymphocytes Absolute Auto 700 /uL (1100-4500); Lymphocytes Percent Auto 6.5 % (25-40); Mean Corpuscular HGB Conc 33.2 % (30-36); Mean Corpuscular Hemoglobin 32.8 PG (26-34); Mean Corpuscular Volume 98.6 fL (80-100); Monocytes Absolute Auto 500 /uL (0-900); Monocytes Percent Auto 4.6 % (3-14); Neutrophils Absolute Auto 8500 /uL (1500-7000); Neutrophils Percent Auto 82.4 % (50-75); Platelet Count 155 X10^3/uL (150-400); Red Cell Distribution Width 13.7 % (11.6-14.8); White Blood Cell Count 10.3 X10^3/uL (4.5-11.0)
[2018-12-07 05:55] LABS: Hematocrit 23.7 % (36-46)
[2018-12-07 05:56] LABS: Hemoglobin A1C% w Est Avg Glu 5.8 % (4.0-6.0)
[2018-12-07 06:31] LABS: TSH w/ Reflex to FT4 0.33 uIU/mL (0.47-4.68)
--- NOTE | 2018-12-07 08:30 | ST.IPTN ---
[facility] [facility] Treatment Note [facility] [facility] Treatment Note Start: 12/06/18 15:32 Freq: Status: Active Protocol: Document 12/07/18 12:36 [facility] (Rec: 12/07/18 12:46 [facility] [id number]) Speech Pathology Treatment Note Session Time Visit Start Time 08:00 Visit Stop Time 08:30 Total Visit Minutes 30 Visit Information Visit Number 2 Setting Treatment Setting Acute Care Visit Type Note Type Treatment Note Next Note Type Next Note Type Treatment Note Subjective Chief Complaint(s) Speech,Language,Cognitive Objective Short Term Goals Jorge will formulate sentences with given words related to her personal needs, ADL?s and safety with 80% effectiveness to improve communication of basic wants/needs. Treatment Activities Provided patient with medical needs picture communication board. Targeted verbal expression by formulating sentences given words related to personal and medical needs. Patient completed with 90% accuracy, but was noted to perseverate on the previous word requiring repetition and redirection to the new target word 2-3 times. She stated my eyes aren't focusing...I'm sorry. Targeted word finding by naming object described - 90% accuracy and stating function of named object - 80% accuracy given extra time. Swallow screen was performed and patient was noted to have mild anterior loss of bolus, difficulty with oral prep phase due to jerking movements of her hands and mid oral residue which cleared with cues for liquid wash and lingual sweep initiated independently. Cough noted following one sip of water. Patient denies difficulty swallowing or feeling as if food/liquids are going down the wrong way. Nursing denies any coughing during meals. Assessment Patient Response to Treatment Good Rehab Potential Good Impairments Identified Attention,Cognitive-Linguistic Skills,Expressive Language Assessment of Improvement Patient's speech and language skills appear to have improved from yesterday, though she continues to require cueing and extra time to express her thoughts. OT noted difficulty with initiation during sequencing of ADLs yesterday, and patient was perseverative during structured tasks this morning suggesting impairments in attention and executive functions. Given these cognitive- linguistic impairments, patient would benefit from SNF rehab prior to going home to improve safety and decrease risk of falls/accidents. Reviewed with Patient Progress Being Made Patient/Caregiver Understanding Good Plan Therapy Recommendations Continue with Current Program
--- NOTE | 2018-12-07 08:51 | P.PN_ITS ---
Subjective Subjective Date Patient Seen: 12/07/18 Time Patient Seen: 08:51 Interval history: She is feeling better today. Achy across the back but the arms feel stronger. Feels much better with her speech although still has a little word searching. Exam Vital Signs (past 8 hours): - 12/07/18 01:00 12/07/18 01:30 12/07/18 05:00 Temperature 97.7 F 97.9 F Pulse Rate 62 62 Respiratory Rate 16 18 Blood Pressure 101/42 L 109/46 L Pulse Oximetry 90 L 96 96 12/07/18 08:00 Temperature 98.2 F Pulse Rate 60 Respiratory Rate 16 Blood Pressure 133/56 L Pulse Oximetry 97 Fraction of Inspired Oxygen 21 Oxygen Delivery Method Nasal Cannula Oxygen Flow Rate 1 Const Orientation: alert and oriented x3 Back/Spine/Pelvis Other: Moderate drainage. 5/5 motor both lower extremities. 5/5 motor both upper extremities. Objective Labs Result Diagrams: 12/07/18 05:25 12/07/18 05:25 Labs: Laboratory Results - last 24 hr 12/06/18 12/06/18 12/06/18 12:28 12:28 12:28 WBC 11.9 H RBC 2.49 L Hgb 8.0 L Hct 24.7 L MCV 99.0 MCH 32.1 MCHC 32.4 RDW 13.6 Plt Count 156 Neut % (Auto) 90.5 H Lymph % (Auto) 3.0 L [place] % (Auto) 4.0 Eos % (Auto) 2.0 Baso % (Auto) 0.5 Neut # (Auto) 78627 H Lymph # (Auto) 400 L [place] # (Auto) 500 Eos # (Auto) 200 Baso # (Auto) 100 Sodium 135 L Potassium 4.5 Chloride 103 Carbon Dioxide 24 BUN 35 H Creatinine 1.60 H Estimated GFR 31.0 L BUN/Creatinine Ratio 21.9 Glucose 135 H Hemoglobin A1c Calcium 8.8 Magnesium 1.8 Troponin I Triglycerides Cholesterol LDL Cholesterol, Calc HDL Cholesterol TSH 12/06/18 12/07/18 12/07/18 12:28 05:25 05:25 WBC RBC Hgb Hct MCV MCH MCHC RDW Plt Count Neut % (Auto) Lymph % (Auto) [place] % (Auto) Eos % (Auto) Baso % (Auto) Neut # (Auto) Lymph # (Auto) [place] # (Auto) Eos # (Auto) Baso # (Auto) Sodium Potassium Chloride Carbon Dioxide BUN Creatinine Estimated GFR BUN/Creatinine Ratio Glucose Hemoglobin A1c 5.8 Calcium Magnesium Troponin I 0.014 Triglycerides 66 Cholesterol 122 L LDL Cholesterol, Calc 59 HDL Cholesterol 50 TSH 12/07/18 12/07/18 12/07/18 05:25 05:25 05:25 WBC 10.3 RBC 2.40 L Hgb 7.9 L Hct 23.7 L MCV 98.6 MCH 32.8 MCHC 33.2 RDW 13.7 Plt Count 155 Neut % (Auto) 82.4 H Lymph % (Auto) 6.5 L [place] % (Auto) 4.6 Eos % (Auto) 6.1 H Baso % (Auto) 0.4 Neut # (Auto) 8500 H Lymph # (Auto) 700 L [place] # (Auto) 500 Eos # (Auto) 600 H Baso # (Auto) 0 Sodium 136 L Potassium 4.1 Chloride 103 Carbon Dioxide 27 BUN 41 H Creatinine 1.90 H Estimated GFR 25.4 L BUN/Creatinine Ratio 21.6 Glucose 106 Hemoglobin A1c Calcium 8.9 Magnesium 2.1 Troponin I Triglycerides Cholesterol LDL Cholesterol, Calc HDL Cholesterol TSH 0.33 L Assessment & Plan Post-op Postoperative Procedures: Procedures Operation Date: 12/05/18 07:45 Actual Procedures Side Surgeon p T-10-12 & L3-S1 laminectomies, L4-S1 instrumented fusion (TLIF) with bone graft Not Applicable Ozzie Boyce MD She seems to be greatly improved on her speech today although not 100% back to normal. Head CT showed no acute bleed. Now just on aspirin. I appreciate input from the hospitalist service. Chronic renal failure with an acute bump on today's labs. She is 4 L positive on her I/O balance since she has been in the hospital. Most likely this is just normal 3rd spacing. She has already started to diurese this morning and I expect her BUN and creatinine to improve with this. Acute blood loss anemia -she does have some hypotension, but normal heart rate. I will check again tomorrow, but with diuresis I expect this to also improve. Continue to mobilize with physical therapy. Quality VTE Deep Vein Thrombosis/Pulmonary Embolism Present on Admission: No
[2018-12-07 08:55] LABS: Free T4, Direct Thyroxine 1.15 ng/dL (0.78-2.19)
[2018-12-07] MEDS: FUROSEMIDE 40 MG TABLET PO (09:04)
[2018-12-07] MEDS: ASCORBIC ACID 500 MG TABLET PO (09:04)
[2018-12-07] MEDS: ASPIRIN EC 81 MG TABLET PO (09:04)
[2018-12-07] MEDS: DOCUSATE 100 MG CAPSULE PO ×2 (09:04→21:48)
[2018-12-07] MEDS: CALCIUM CARBONATE 600 MG TABLET PO (09:05)
[2018-12-07] MEDS: CITALOPRAM 20 MG TABLET PO (09:05)
[2018-12-07] MEDS: AMLODIPINE 5 MG TABLET PO (09:05)
[2018-12-07] MEDS: SODIUM CHLORIDE 0.9% FLUSH 10 ML IV ×2 (09:06→21:49)
[2018-12-07] MEDS: ACETAMINOPHEN 325 MG TABLET 975 MG PO (09:16)
[2018-12-07] MEDS: GABAPENTIN 300 MG CAPSULE PO ×3 (09:16→21:48)
--- NOTE | 2018-12-07 11:45 | PM.PN.1 ---
Subjective Subjective Date Patient Seen: 12/07/18 Time Patient Seen: 11:15 Interval history: Jorge Jensen is an 78-year-old female with past medical history of CAD, sick sinus syndrome status post pacemaker, aortic stenosis, hypertension, hypothyroidism, depression, CKD, iron deficiency anemia who is admitted following T-10-12 & L3-S1 laminectomies, L4-S1 instrumented fusion (TLIF) with bone graft, she is currently postoperative day 2. Medicine was consulted for difficulties with word finding, she was found to have an NIH stroke scale of 2 with a mild aphasia and mild dysarthria. These seem to have improved this morning but still do not appear to be back at baseline. She otherwise feels well and denies chest pain, shortness of breath. Her labs showed a normal troponin, low TSH with a normal free T4, her LDL was 50. There were no major electrolyte abnormalities although she does have a mild BRISSA today with a creatinine of 1.9 from 1.6 yesterday. Exam Vital Signs (past 8 hours): - 12/07/18 05:00 12/07/18 08:00 Temperature 97.9 F 98.2 F Pulse Rate 62 60 Respiratory Rate 18 16 Blood Pressure 109/46 L 133/56 L Pulse Oximetry 96 97 Fraction of Inspired Oxygen 21 Oxygen Delivery Method Nasal Cannula Oxygen Flow Rate 1 Objective Labs Result Diagrams: 12/07/18 05:25 12/07/18 05:25 Labs: Laboratory Results - last 24 hr 12/06/18 12/06/18 12/06/18 12:28 12:28 12:28 WBC 11.9 H RBC 2.49 L Hgb 8.0 L Hct 24.7 L MCV 99.0 MCH 32.1 MCHC 32.4 RDW 13.6 Plt Count 156 Neut % (Auto) 90.5 H Lymph % (Auto) 3.0 L [place] % (Auto) 4.0 Eos % (Auto) 2.0 Baso % (Auto) 0.5 Neut # (Auto) 64443 H Lymph # (Auto) 400 L [place] # (Auto) 500 Eos # (Auto) 200 Baso # (Auto) 100 Sodium 135 L Potassium 4.5 Chloride 103 Carbon Dioxide 24 BUN 35 H Creatinine 1.60 H Estimated GFR 31.0 L BUN/Creatinine Ratio 21.9 Glucose 135 H Hemoglobin A1c Calcium 8.8 Magnesium 1.8 Troponin I Triglycerides Cholesterol LDL Cholesterol, Calc HDL Cholesterol TSH Free T4 12/06/18 12/07/18 12/07/18 12:28 05:25 05:25 WBC RBC Hgb Hct MCV MCH MCHC RDW Plt Count Neut % (Auto) Lymph % (Auto) [place] % (Auto) Eos % (Auto) Baso % (Auto) Neut # (Auto) Lymph # (Auto) [place] # (Auto) Eos # (Auto) Baso # (Auto) Sodium Potassium Chloride Carbon Dioxide BUN Creatinine Estimated GFR BUN/Creatinine Ratio Glucose Hemoglobin A1c 5.8 Calcium Magnesium Troponin I 0.014 Triglycerides 66 Cholesterol 122 L LDL Cholesterol, Calc 59 HDL Cholesterol 50 TSH Free T4 12/07/18 12/07/18 12/07/18 05:25 05:25 05:25 WBC 10.3 RBC 2.40 L Hgb 7.9 L Hct 23.7 L MCV 98.6 MCH 32.8 MCHC 33.2 RDW 13.7 Plt Count 155 Neut % (Auto) 82.4 H Lymph % (Auto) 6.5 L [place] % (Auto) 4.6 Eos % (Auto) 6.1 H Baso % (Auto) 0.4 Neut # (Auto) 8500 H Lymph # (Auto) 700 L [place] # (Auto) 500 Eos # (Auto) 600 H Baso # (Auto) 0 Sodium 136 L Potassium 4.1 Chloride 103 Carbon Dioxide 27 BUN 41 H Creatinine 1.90 H Estimated GFR 25.4 L BUN/Creatinine Ratio 21.6 Glucose 106 Hemoglobin A1c Calcium 8.9 Magnesium 2.1 Troponin I Triglycerides Cholesterol LDL Cholesterol, Calc HDL Cholesterol TSH 0.33 L Free T4 1.15 Assessment & Plan Assessment & Plan narrative: Jorge Jensen is an 78-year-old female with past medical history of CAD, sick sinus syndrome status post pacemaker, aortic stenosis, hypertension, hypothyroidism, depression, CKD, iron deficiency anemia who is admitted following T-10-12 & L3-S1 laminectomies, L4-S1 instrumented fusion (TLIF) with bone graft, she is currently postoperative day 2. Medicine was consulted for patient's aphasia and dysarthria. 1. Aphasia, acute -possibly secondary to new CVA. Differential includes side effect of anesthesia yesterday, and she does have significant heart history but denies chest pain and troponin was within normal limits. Her head CT was negative for acute changes and because of her pacemaker we are unable to obtain an MRI, but this CT does show an old infarct as well as microvascular changes. Last known normal was prior to operative interventions so she was outside window for any interventions at this time, and additionally she has a recent surgery. She is improved today but still has some speech difficulties. -would recommend repeat head CT in approximately tomorrow AM to see if any new lesions are evident, at the same time recommend a CTA head and neck if her kidney function allows this although with a new BRISSA today this can wait. -Pt/OT/Speech following -limit narcotics as much as possible -continue aspirin 81 mg daily -lipids are controlled. 2. CAD - - lipitor 40 mg nightly - lipid panel as above 3. HTN - continue home amlodipine, lasix 4. Aortic stenosis - continue home lasix 5. Hypothyroidism - - f/u TSH as above - continue home levothyroxine 6. Depression - continue home citalopram. 7. Anemia, likely secondary to operative interventions. Unknown baseline. Likely anemia of chronic inflammation. - CBC has been stable, this is likely a chronic anemia. MCV is 99 will send a b12 and folate in the morning. 8. Acute kidney injury on Stage IV CKD, Cr 1.9 today from 1.6 yesterday. Possibly secondary to decreased PO intake, new CVA or medication induced. - follow BMP daily DVT ppx per primary team Medicine Service will continue to follow. Quality VTE Deep Vein Thrombosis/Pulmonary Embolism Present on Admission: No
--- NOTE | 2018-12-07 12:37 | PT.IPTN ---
Current Diagnoses Spondylolisthesis, lumbar region (12/05/18) Spinal stenosis, thoracic region (12/05/18) Spinal stenosis, lumbar region with neurogenic claudication (12/05/18) Surgery Performed Operation Date: 12/05/18 07:45 Actual Procedures p T-10-12 & L3-S1 laminectomies, L4-S1 instrumented fusion (TLIF) with bone graft(Not Applicable) - Ozzie Boyce MD Physical Therapy Treatment Note M2 PT-IP Current Condition Start: 12/06/18 08:22 Freq: NEEDED Status: Active Protocol: Document 12/06/18 10:35 HH (Rec: 12/06/18 12:08 HH [id number]) Physical Therapy Current Condition Current Condition Evaluation Date 12/06/18 Treatment Diagnosis T10-12&L3-S1 laminectomies, L4 -S1 TLIF, difficulty in walking, fall risks Onset Date 12/05/18 Precautions Lumbar Precautions Log Roll,No Twisting,Limit Bending,Lifting Restriction of 10 lbs,Gait Belt above Incisional Area Weight Bearing Status Weight Bearing Status Weight Bear as Tolerated M3 PT-IP Subjective Start: 12/06/18 08:22 Freq: NEEDED Status: Active Protocol: Document 12/07/18 12:12 AW (Rec: 12/07/18 12:36 AW [id number]) Subjective Physical Therapy Visit Type Type Treatment Note Visit Start Time 11:35 Visit Stop Time 12:08 Total Visit Minutes 33 Number of BED PLACEMENT COORDINATOR Visits 0 Physical Therapy Visit Comments Patient Comments Pt is feeling better. She and granddaughter believe her word -finding is improving. She would like to sit up in the chair for lunch. Therapy Pain Assessment Pain When Pain Assessed At Rest Pain Present Pain Present Pain Reported Location Lower Back Intensity 4 Scale Used Numeric (1 - 10) Pain Management Techniques Apply Cold,Timing of Activity with Medications M4 PT-IP Mobility and Gait Start: 12/06/18 08:22 Freq: NEEDED Status: Active Protocol: Document 12/07/18 12:12 AW (Rec: 12/07/18 12:36 AW [id number]) PT-Bed Mobility Assessment Rolling Type of Rolling Log Rolling Level of Assist Contact Guard Assistance, Minimal Assistance,1 Person Assistance Supine to Sit Supine to Sit Moderate Assistance,1 Person Assistance,Bedrails Scooting Scooting to Edge of Bed Contact Guard Assistance PT-Transfer Assessment Sit to and From Stand Sit to and from Stand Moderate Assistance,1 Person Assistance,Use of Upper Extremities Equipment Transfer Assistive Device Gait Belt,Front Wheeled Walker Orthotic/Prosthetic Devices or Brace: Yes Transfers Transfer Destination Chair Transfer Technique pt ambulated with FWW in room, returned to chair Transfer Ability Level of Assist Moderate Assistance,1 Person Assistance,Use of Upper Extremities Comments Mobility Comments BP 139/61 in sitting, 141/63 after short bout of ambulation . Pt requiring decreased level of assist for transfers Gait Assessment Gait Gait Assistance Required: Minimum Assistance,1 Person Assist Distance (Feet) 10 Able to Maintain Weight Bearing Status Yes During Gait Assistive Devices Assistive Device Gait Belt,Front Wheeled Walker Orthotic/Prosthetic Devices or Brace: No Gait Deviations General Gait Pattern Decreased Stride Length, Decreased Feet Clearance, Flexed Trunk Factors Limiting Gait Function Factors Limiting Gait Function Decreased Activity Tolerance, Decreased Strength, Incoordination,Pain,Poor Balance Comments Gait Comments Improved stability in gait using FWW. No knee buckling. Posterior loss of balance x 2 requiring min assist to recover. Ambulation with FWW 5 feet to chair, 10 feet around room to sink, 5 feet back to chair. M5 PT-IP Objective Assessments Start: 12/06/18 08:22 Freq: NEEDED Status: Active Protocol: Document 12/06/18 10:35 (Rec: 12/06/18 12:08 [email or web address]) Orientation Orientation/Cognition Level of Alertness Alert Orientation Name,Age,Birthday,Month,Date, Year,Day of Week,Place, Situation Language Function Ability Word Finding Difficulties Safety Awareness Decreased Safety Awareness Memory Description Short Term Impaired Comments unable to retain post op precautions Gross Range of Motion Upper Extremity ROM Assessment Bilaterally Impaired Impairments L arm unable to lift pass shoulder level Lower Extremity ROM Assessment Bilaterally Impaired Strength Upper Extremity Strength Assessment Bilaterally Impaired Lower Extremity Strength Assessment Bilaterally Impaired Comments Strength Comments B UEs 3/5 B UEs 3-/5 Coordination Assessment Gross Coordination Gross Coordination WNL Sensation Assessment Sensation Gross Sensation WNL M6 PT-IP Treatment Start: 12/06/18 08:22 Freq: NEEDED Status: Active Protocol: Document 12/06/18 14:50 GGD (Rec: 12/06/18 17:05 GGD [id number]) Physical Therapy Treatment Education Education Provided Precautions M7 PT-IP Assessment and Plan Start: 12/06/18 08:22 Freq: NEEDED Status: Active Protocol: Document 12/07/18 12:12 AW (Rec: 12/07/18 12:36 AW [id number]) PT Summary Assessment and Plan Potential Rehabilitation Potential Good Status of Condition at Evaluation Evolving Summary Assessment Summary Pt continues to improve with mobility, requiring decreased level of assist for all mobility. Improved word- finding noted by granddaughter . Light touch sensation impaired with no identifiable pattern, worse in feet. Pt able to withstand moderate challenge to static balance in sitting at EOB. Pt was able to stand at sink for grooming >5 minutes with CGA for balance. PT continues to recommend SNF rehab at discharge before anticipated return to home. Goals Bed Mobility Goal Minimal Assistance Transfer Goal Minimal Assistance,Front Wheeled Walker Gait Goal Minimal Assistance,Front Wheel Walker Gait Distance 50 Other Goals 1 CARLOS with L rail Days to Meet Goals 8 Frequency of Treatment Frequency Of Treatment Twice a Day Treatment Plan Physical Therapy Treatment Plan Bed Mobility Training,Transfer Training,Gait Training, Therapeutic Exercise,Balance Retraining,Post Op Education, Discharge Planning,Hot or Cold Pack,Neuromuscular Re-ed Other Recommendations and Next Treatment review post op precautions Focus log roll check VSS bed mob and transfer as carlee Recommendations To Nursing Amount of Assist Needed 2 Person Assist Discharge Recommendations PT Discharge Recommendations SNF Rehab
--- NOTE | 2018-12-07 13:03 | OT.IP.TRT ---
Current Diagnoses Spondylolisthesis, lumbar region (12/05/18) Spinal stenosis, thoracic region (12/05/18) Spinal stenosis, lumbar region with neurogenic claudication (12/05/18) Surgery Performed Operation Date: 12/05/18 07:45 Actual Procedures p T-10-12 & L3-S1 laminectomies, L4-S1 instrumented fusion (TLIF) with bone graft(Not Applicable) - Ozzie Boyce MD Occupational Therapy Treatment Note M2 OT-IP Current Condition Start: 12/06/18 17:03 Freq: Status: Active Protocol: Document 12/06/18 17:04 [facility] (Rec: 12/06/18 17:32 [facility] [id number]) Occupational Therapy Current Condition Current Condition Evaluation Date 12/06/18 Treatment Diagnosis T10-11, T11-12 laminectomies, L4-5, L5-S1 TLIF, decreased self-care and cog Diagnosis Onset Date 12/05/18 Post Operative Precautions Lumbar Precautions Log Roll,No Twisting,Limit Bending,Lifting Restriction of 10 lbs,Gait Belt above Incisional Area Weight Bearing Status Weight Bearing Status Weight Bear as Tolerated M3 OT- IP Subjective and Pain Start: 12/06/18 17:03 Freq: Status: Active Protocol: Document 12/07/18 12:50 [facility] (Rec: 12/07/18 13:03 [facility] [email or web address]) OT- Subjective Occupational Therapy Visit Type Type Treatment Note Visit Start Time 11:30 Visit Stop Time 12:10 Total Visit Minutes 40 Occupational Therapy Visit Comments Patient Comments Pt pleasant and agreeable to get out of bed. OT Pain Assessment Pain When Pain Assessed At Rest Pain Present Pain Present Pain Reported Location Lower Back Intensity 4 Scale Used Numeric (1 - 10) M4 OT- IP ADL's Start: 12/06/18 17:03 Freq: Status: Active Protocol: Document 12/07/18 12:50 [facility] (Rec: 12/07/18 13:03 [facility] [email or web address]) OT ADL-Grooming General Evaluation Grooming Ability Standby Assistance Areas Needing Assistance Retrieving/Set-up of Grooming Items Comments OT Grooming Comments Pt able to stand at sink with FWW and JAKE and able to hand her hands and brush her hair. Pt states brushed her teeth earlier. OT ADL-Dressing General Eval Lower Body Dressing Ability Maximum Assistance Areas Needing Assistance Socks OT ADL-Toileting Comments OT Toileting Comments Pt has pablo in. M5 OT- IP IADL's Start: 12/06/18 17:03 Freq: Status: Active Protocol: Document 12/06/18 17:04 [facility] (Rec: 12/06/18 17:32 [facility] [email or web address]) OT-Instrumental Activities of Daily Living Home Safety Awareness Home Safety Comments At this time due to having difficulty with functional cognition and sequencing through steps of ADl's and needing extensive assist for transfers, pt will need assist for all IADL's at si time. M6 OT- IP Functional Cognition Start: 12/06/18 17:03 Freq: Status: Active Protocol: Document 12/07/18 12:50 [facility] (Rec: 12/07/18 13:03 [facility] [email or web address]) Cognitive Factors Limiting Selfcare Function Cognitive Ability Level of Alertness Alert,Confusional State Patient Orientation Name,Situation Attention Span Ability Capable of Focused Attention, Capable of Sustained Attention Ability to Follow Commands Able to Follow One Step Commands Memory Description Short Term Impaired Safety Awareness Decreased Recall of Precautions,Decreased Ability to Apply Precautions, Underestimates Need for Assistance Problem Solving Ability Unable to Identify Errors, Needs Assist to Identify Solutions Cognitive Comments Cognitive Assessment Comments Pt needing less cues to process through task of grooming today. However pt having trouble with short term memory and attention as pt just placed hair brush back in her bag but then asking where her hair brush was at. Pt continues to need step by step directions for safety, keeping the FWW with her at all times and to be sure to keep it in front of her. M7 OT- IP Mobility and Balance Start: 12/06/18 17:03 Freq: Status: Active Protocol: Document 12/07/18 12:50 [facility] (Rec: 12/07/18 13:03 [facility] [email or web address]) OT- Bed Mobility Assessment Rolling Type of Rolling Roll to Right Level of Assistance Minimal Assistance Supine to Sit Supine to Sit Assist Moderate Assistance,1 Person Assistance OT-Transfer Assessment Sit to and From Stand Sit to and from Stand Moderate Assistance,1 Person Assistance Transfers Transfer Ability Moderate Assistance,1 Person Assistance Technique Transfer Destination Bed,Bedside Commode,Chair Transfer Technique Stand Step Pivot Devices Transfer Assistive Devices Gait Belt,Front Wheeled Walker Comments Mobility Comments Much improved today with functional mobility. Pt noted no buckling , however has a tendency to keep her weight on the back of her heels. OT- Balance Assessment Sitting Balance and Reactions Static Sitting Balance Ability Good Standing Balance and Reactions Static Standing Balance Ability Fair Dynamic Standing Balance Ability Poor M8 OT- IP Objective Assessments Start: 12/06/18 17:03 Freq: Status: Active Protocol: Document 12/06/18 17:04 [facility] (Rec: 12/06/18 17:32 [facility] [email or web address]) OT Gross Range of Motion Upper Extremity Range of Motion Assessment Right Impaired ROM Impairments Pt's RUE 10 degress in scaption, WFL from elbow to distal, LUE WFL OT Strength Comments Strength Comments RUE 3-/5 to 4-/5, LUE 4-/5 throughout. OT- Coordination Assessment Upper Extremity Finger to Nose Test Right UE Impaired Comments Coordination Comments Increased time to touch nose with right hand and slightly off. Able to do finger to thumb coordination with both hands. OT-Muscle Tone Assessment Muscle Tone WNL Yes Comments Muscle Tone Comments Pt at rest has a tremor and tends to be unsteady when trying to reach out to touch therpaist's hand. OT Sensation Assessment Comments Summary Comments RUE impaired for light touch throughtout and even when left hand touched would state right hand being touched. Pt describes the sensation of numbness and tingling RUE> LUE . M9 OT- IP Assessment and Plan Start: 12/06/18 17:03 Freq: Status: Active Protocol: Document 12/07/18 12:50 [facility] (Rec: 12/07/18 13:03 [facility] [email or web address]) OT Summary Assessment and Plan Potential Rehabilitation Potential Fair Analytic Complexity at Evaluation Moderate Summary OT Impairments Pain,Strength,Balance, Sensation,Functional Cognition ,Functional Mobility,Self- Feeding,Grooming,Dressing, Toileting,Bathing,Toilet Transfers,Shower Transfers Progress Towards Goals Slow Progress due to Pain,Slow Progress due to Medical Issues,Slow Progress due to Activity Tolerance,Slow Progress due to Cognition Assessment Summary Pt improving with functional mobility however still decreased for safety awareness , problem solving, and needing assist to help sequence through tasks. Pt has better sensation with both arms and more consistent today. Pt better getting her words out as well. Still recommend skilled rehab prior to [place] [facility]. Goals Self-Feeding Goal Standby Assistance Grooming Goal Standby Assistance Dressing Goal Minimal Assistance Toileting Goal Minimal Assistance Bathing Goal Moderate Assistance Toilet Transfer Goal Contact Guard Assistance Shower Transfer Goal Minimal Assistance OT-Other Goals grooming while standing Days to Meet Goals 7 Frequency of Treatment Frequency Of Treatment Once a Day Treatment Plan OT Treatment Plan ADL Training,Functional Cognition Training,Functional Mobility,Patient/Family Education,Discharge Planning Other Treatment Recommendations and Next lowe body dressing equipment Treatment Focus education , back precautions Discharge Recommendations OT Discharge Recommendations SNF Rehab Home Equipment Needs defer to SNF
--- NOTE | 2018-12-07 14:02 | CM.DPC ---
Addendum entered by Sherice Ruiz LPN 12/07/18 15:40: Family here and all including pt agree with plan for [facility] before home. Pt would much prefer directly home but does understand this is not doable at present and clearly is trusting in her granddaughter's advice. Will update Flora/MARTÍN now and update Mariah/MARCELINO. Original Note: DCP: continued. Case discussed in Team Rounds and Dr. Mcmullen confirmed hospitalist team was now consulting. He states pt with s/s of + CVA with another CT planned for tomorrow morning. COUPON MANIFEST CLERK seeing pt now in addition to PT/OT. MRI cannot be done due to pacemaker. Therapy team are recommending snf for rehab. Met then with pt and her POA Granddaughter Jenifer Martinez and Jenifer's Philippe. They live in [place] but will stay for a while at pt's home in [place] while she recovers. All including pt are aware that the team recommendation is for a snf rehab stay and agreeable to same. SNF choice list: discussed: Decision: [facility]/[place] or [facility] ([facility]). Family are touring both this afternoon and expect to have a decision by 1600. Confirmed with Mariah/OSIRISTSourav and Flora/Erin that beds are available. Both confirm that the facility will set up w/c van transport at d/c. Have faxed face sheet to both. Will follow with full referral packet once the snf choice is identified. PASRR: needed
--- NOTE | 2018-12-07 16:15 | PT.IPTN ---
Current Diagnoses Spondylolisthesis, lumbar region (12/05/18) Spinal stenosis, thoracic region (12/05/18) Spinal stenosis, lumbar region with neurogenic claudication (12/05/18) Surgery Performed Operation Date: 12/05/18 07:45 Actual Procedures p T-10-12 & L3-S1 laminectomies, L4-S1 instrumented fusion (TLIF) with bone graft(Not Applicable) - Ozzie Boyce MD Physical Therapy Treatment Note M2 PT-IP Current Condition Start: 12/06/18 08:22 Freq: NEEDED Status: Active Protocol: Document 12/06/18 10:35 HH (Rec: 12/06/18 12:08 [email or web address]) Physical Therapy Current Condition Current Condition Evaluation Date 12/06/18 Treatment Diagnosis T10-12&L3-S1 laminectomies, L4 -S1 TLIF, difficulty in walking, fall risks Onset Date 12/05/18 Precautions Lumbar Precautions Log Roll,No Twisting,Limit Bending,Lifting Restriction of 10 lbs,Gait Belt above Incisional Area Weight Bearing Status Weight Bearing Status Weight Bear as Tolerated M3 PT-IP Subjective Start: 12/06/18 08:22 Freq: NEEDED Status: Active Protocol: Document 12/07/18 15:58 AW (Rec: 12/07/18 16:15 AW [id number]) Subjective Physical Therapy Visit Type Type Treatment Note Visit Start Time 15:39 Visit Stop Time 15:54 Total Visit Minutes 15 Number of LINUX SYSTEMS ENGINEER Visits 0 Physical Therapy Visit Comments Patient Comments Pt has been sitting in chair for >3 hours and is ready to return to bed. M4 PT-IP Mobility and Gait Start: 12/06/18 08:22 Freq: NEEDED Status: Active Protocol: Document 12/07/18 15:58 AW (Rec: 12/07/18 16:15 AW [id number]) PT-Bed Mobility Assessment Rolling Type of Rolling Roll to Right Level of Assist Contact Guard Assistance, Minimal Assistance,1 Person Assistance Sit to Supine Sit to Supine Minimal Assistance,1 Person Assistance,Bedrails PT-Transfer Assessment Sit to and From Stand Sit to and from Stand Moderate Assistance,1 Person Assistance,Use of Upper Extremities Equipment Transfer Assistive Device Gait Belt,Front Wheeled Walker Orthotic/Prosthetic Devices or Brace: No Transfers Transfer Destination Bed Transfer Technique Stand Step Pivot Transfer Ability Level of Assist Minimal Assistance,1 Person Assistance,Use of Upper Extremities Comments Mobility Comments BP 141/95 in sitting. SpO2 93% on room air. Gait Assessment Gait Gait Assistance Required: Minimum Assistance,1 Person Assist Distance (Feet) 3 Able to Maintain Weight Bearing Status Yes During Gait Assistive Devices Assistive Device Gait Belt,Front Wheeled Walker Orthotic/Prosthetic Devices or Brace: No Gait Deviations General Gait Pattern Decreased Stride Length, Decreased Feet Clearance, Flexed Trunk Factors Limiting Gait Function Factors Limiting Gait Function Decreased Activity Tolerance, Decreased Strength, Incoordination,Pain,Poor Balance Comments Gait Comments No knee buckling with short distance ambulation using FWW. Pt is fearful of falling but willing to ambulate with assist. M5 PT-IP Objective Assessments Start: 12/06/18 08:22 Freq: NEEDED Status: Active Protocol: Document 12/06/18 10:35 HH (Rec: 12/06/18 12:08 [email or web address]) Orientation Orientation/Cognition Level of Alertness Alert Orientation Name,Age,Birthday,Month,Date, Year,Day of Week,Place, Situation Language Function Ability Word Finding Difficulties Safety Awareness Decreased Safety Awareness Memory Description Short Term Impaired Comments unable to retain post op precautions Gross Range of Motion Upper Extremity ROM Assessment Bilaterally Impaired Impairments L arm unable to lift pass shoulder level Lower Extremity ROM Assessment Bilaterally Impaired Strength Upper Extremity Strength Assessment Bilaterally Impaired Lower Extremity Strength Assessment Bilaterally Impaired Comments Strength Comments B UEs 3/5 B UEs 3-/5 Coordination Assessment Gross Coordination Gross Coordination WNL Sensation Assessment Sensation Gross Sensation WNL M6 PT-IP Treatment Start: 12/06/18 08:22 Freq: NEEDED Status: Active Protocol: Document 12/07/18 15:58 AW (Rec: 12/07/18 16:15 AW [id number]) Physical Therapy Treatment Exercises Exercises Ankle Pumps,Gluteal Sets,Quad Sets,Heel Slides Education Education Provided Safety M7 PT-IP Assessment and Plan Start: 12/06/18 08:22 Freq: NEEDED Status: Active Protocol: Document 12/07/18 15:58 AW (Rec: 12/07/18 16:15 AW [id number]) PT Summary Assessment and Plan Summary Progress Towards Goals Slow Progress due to Medical Issues Assessment Summary Pt remains fearful of falling, but is more steady with gait. She tolerated bed exercises well. PT anticipates discharge to SNF for rehab stay before return to home. Goals Bed Mobility Goal Minimal Assistance Transfer Goal Minimal Assistance,Front Wheeled Walker Gait Goal Minimal Assistance,Front Wheel Walker Gait Distance 50 Other Goals 1 CARLOS with L rail Days to Meet Goals 8 Frequency of Treatment Frequency Of Treatment Twice a Day Treatment Plan Physical Therapy Treatment Plan Bed Mobility Training,Transfer Training,Gait Training, Therapeutic Exercise,Balance Retraining,Post Op Education, Discharge Planning,Hot or Cold Pack,Neuromuscular Re-ed Other Recommendations and Next Treatment progress gait Focus review log roll Recommendations To Nursing Amount of Assist Needed 2 Person Assist Discharge Recommendations PT Discharge Recommendations SNF Rehab
[2018-12-07] MEDS: OXYBUTYNIN 5 MG ER TAB PO (21:48)
[2018-12-07] MEDS: SENNOSIDES 8.6 MG TABLET 17.2 MG PO (21:48)
--- NOTE | 2018-12-08 00:49 | PC.NURSE ---
Addendum entered by Ena Felix R.N. 12/08/18 05:22: Slept most of shift between being repositioned. This morning having less word finding difficulty. States pain is only 3/10 and declines offer of pain medication. Original Note: Patient is oriented except to month and year. Still with word finding difficulty and delayed speech needing frequent cueing to get her to respond to questions asked or to follow directions. NIH 6 but seems drowsy (kept closing eyes and having to call name and ask her to open her eyes). Has weakness in bilateral LE due to back surgery which is affecting NIH scoring. PRIVATE DUTY RNJulissa, made aware of score with no order changes. Is scheduled for repeat CT in morning. Breath sounds CTA with RA sat of 93%. HRR. Denies nausea. BT present but denies flatus; abdomen is soft. Indwelling catheter patent; urine pale yellow. Catheter has not yet been d'cd due to poor mobility. Is able to assist in repositioning but does not turn on her own. Chronic numbness bilateral feet unchanged from pre-op per patient. Wearing bilateral foot SCD's. Rating pain as 4/10 but falls asleep readily so not medicated at this time. Fall risk score is high and bed alarm is activated.
[2018-12-08 04:49] VITALS: BP 139/52; PULSE 73; RESP 16; TEMP 36.8; O2SAT 95
[2018-12-08] MEDS: LEVOTHYROXINE 75 MCG TABLET PO (05:20)
[2018-12-08 05:42] LABS: Add Manual Diff / Slide Review NO; Basophils Absolute Auto 0 /uL (0-100); Basophils Percent Auto 0.4 % (0-2); Eosinophils Absolute Auto 500 /uL (0-450); Eosinophils Percent Auto 5.4 % (2-4); Hematocrit 23.4 % (36-46); Hemoglobin 7.9 g/dL (12.0-16.0); Lymphocytes Absolute Auto 600 /uL (1100-4500); Lymphocytes Percent Auto 6.6 % (25-40); Mean Corpuscular HGB Conc 33.6 % (30-36); Mean Corpuscular Hemoglobin 32.8 PG (26-34); Mean Corpuscular Volume 97.7 fL (80-100); Monocytes Absolute Auto 500 /uL (0-900); Monocytes Percent Auto 5.4 % (3-14); Neutrophils Absolute Auto 7600 /uL (1500-7000); Neutrophils Percent Auto 82.2 % (50-75); Platelet Count 179 X10^3/uL (150-400); Red Cell Distribution Width 13.7 % (11.6-14.8); White Blood Cell Count 9.2 X10^3/uL (4.5-11.0)
[2018-12-08 05:49] LABS: BUN Creatinine Ratio 21.6 (6-22); Blood Urea Nitrogen 41 mg/dL (7-17); Carbon Dioxide 28 mmol/L (22-32); Chloride 103 mmol/L (98-107); Estimated Glomerular Filt Rate 25.4 mL/min (>60); Glucose 96 mg/dL (80-110); HEMOLYSIS < 15 (0-50); Magnesium 2.1 mg/dL (1.6-2.3); Potassium 4.2 mmol/L (3.4-5.1); Sodium 135 mmol/L (137-145)
[2018-12-08 07:06] LABS: Vitamin B12 232 pg/mL (239-931)
--- NOTE | 2018-12-08 07:34 | PM.PNPO.1 ---
Subjective Subjective Date Patient Seen: 12/08/18 Time Patient Seen: 07:34 Interval history: She is doing much better. Her legs feel stronger. Back pain is about a 3. Speech is returning to normal. Still requiring 1-2 person assist for mobility. Exam Vital Signs (past 8 hours): - 12/07/18 23:40 12/08/18 04:49 Temperature 98.5 F 98.3 F Pulse Rate 63 73 Respiratory Rate 16 16 Blood Pressure 123/44 L 139/52 L Pulse Oximetry 93 95 Fraction of Inspired Oxygen 24 Oxygen Delivery Method Room Air Oxygen Flow Rate 0 Const Orientation: alert and oriented x3 Back/Spine/Pelvis Other: CDI. 5/5 motor both lower extremities Objective Labs Result Diagrams: 12/08/18 05:12 12/08/18 05:12 Labs: Laboratory Results - last 24 hr 12/07/18 12/08/18 12/08/18 05:25 05:12 05:12 WBC 9.2 RBC 2.40 L Hgb 7.9 L Hct 23.4 L MCV 97.7 MCH 32.8 MCHC 33.6 RDW 13.7 Plt Count 179 Neut % (Auto) 82.2 H Lymph % (Auto) 6.6 L Cochran % (Auto) 5.4 Eos % (Auto) 5.4 H Baso % (Auto) 0.4 Neut # (Auto) 7600 H Lymph # (Auto) 600 L Cochran # (Auto) 500 Eos # (Auto) 500 H Baso # (Auto) 0 Sodium 135 L Potassium 4.2 Chloride 103 Carbon Dioxide 28 BUN 41 H Creatinine 1.90 H Estimated GFR 25.4 L BUN/Creatinine Ratio 21.6 Glucose 96 Calcium 9.0 Magnesium 2.1 Vitamin B12 Folate Free T4 1.15 12/08/18 05:12 WBC RBC Hgb Hct MCV MCH MCHC RDW Plt Count Neut % (Auto) Lymph % (Auto) Cochran % (Auto) Eos % (Auto) Baso % (Auto) Neut # (Auto) Lymph # (Auto) Cochran # (Auto) Eos # (Auto) Baso # (Auto) Sodium Potassium Chloride Carbon Dioxide BUN Creatinine Estimated GFR BUN/Creatinine Ratio Glucose Calcium Magnesium Vitamin B12 232 L Folate 10.0 Free T4 Assessment & Plan Post-op Postoperative Procedures: Procedures Operation Date: 12/05/18 07:45 Actual Procedures Side Surgeon p T-10-12 & L3-S1 laminectomies, L4-S1 instrumented fusion (TLIF) with bone graft Not Applicable Ozzie Boyce MD She is making progress. Continue with therapy. I feel she is going to need skilled rehab and we will start looking into this. Acute on chronic renal failure, BUN and creatinine stable since yesterday. Acute blood loss anemia, also stable. She is still hypotensive with a low diastolic but her systolic is normal. Regular heart rate. Appears to be asymptomatic from this. Postoperative stroke, speech appears to be almost back to normal. Plan is for repeat head CT today. Quality VTE Deep Vein Thrombosis/Pulmonary Embolism Present on Admission: No
[2018-12-08 08:00] VITALS: BP 123/61; PULSE 63; RESP 16; TEMP 37
[2018-12-08] MEDS: FUROSEMIDE 40 MG TABLET PO (09:38)
[2018-12-08] MEDS: ASPIRIN EC 81 MG TABLET PO (09:38)
[2018-12-08] MEDS: ASCORBIC ACID 500 MG TABLET PO (09:38)
[2018-12-08] MEDS: PATIROMER CALCIUM SORBITEX 8.4 GM 8.4 EACH PO (09:38)
[2018-12-08] MEDS: AMLODIPINE 5 MG TABLET PO (09:38)
[2018-12-08] MEDS: CITALOPRAM 20 MG TABLET PO (09:39)
[2018-12-08] MEDS: CALCIUM CARBONATE 600 MG TABLET PO (09:39)
[2018-12-08] MEDS: DOCUSATE 100 MG CAPSULE PO ×2 (09:39→20:26)
[2018-12-08] MEDS: SODIUM CHLORIDE 0.9% FLUSH 10 ML IV ×2 (09:40→22:24)
[2018-12-08] MEDS: GABAPENTIN 300 MG CAPSULE PO ×2 (10:04→14:38)
[2018-12-08] MEDS: ACETAMINOPHEN 325 MG TABLET 975 MG PO ×2 (10:04→20:28)
--- NOTE | 2018-12-08 10:18 | DI.CT.S_ITS ---
PROCEDURE: CT HEAD/BRAIN WO CON INDICATIONS: unable to obtain MRI, repeat for ? new ischemic lesion TECHNIQUE: Noncontrast 4.5 mm thick angled axial sections acquired from the foramen magnum to the vertex, with coronal and sagittal reformats. For radiation dose reduction, the following was used: automated exposure control, adjustment of mA and/or kV according to patient size. COMPARISON: [facility], CT, CT HEAD/BRAIN WO CON, 12/06/2018, 8:22. FINDINGS: Image quality: Excellent. CSF spaces: Basal cisterns are patent. No extra-axial fluid collections. Ventricles are normal in size and shape and are unchanged. Brain: No midline shift. No acute intracranial hemorrhage. No mass seen. Israel-white matter interface appears normal. Area of and septal malacia in the right basal ganglia is unchanged. ICA intracranial atherosclerotic calcification. Skull and face: Calvarium and visualized facial bones are intact, without suspicious lesions. Sinuses: Visualized sinuses and mastoids are clear. IMPRESSION: 1. No acute infarct identified. No acute intracranial hemorrhage. 2. Stable lacunar infarct in the right basal ganglia. Dictated by: Wili Dockery M.D. on 12/08/2018 at 10:54 Approved by: Wili Dockery M.D. on 12/08/2018 at 10:59
--- NOTE | 2018-12-08 10:35 | PT-IP ANOTE ---
Pt unavailable, at CT scan will see in PM.
--- NOTE | 2018-12-08 11:14 | CM.DPC ---
DCP Cont: Called [facility] and spoke to Kristie. Informed her this patient would not be discharging until tomorrow. She will hold off on setting up transportation until she hears from us tomorrow. Rachel Wynn, Care Debate Director
--- NOTE | 2018-12-08 11:49 | ST.IP.CME ---
Visit Care Team Role Provider Type Christian Schneider MD Primary Care Provider Non-Staff Specialty: Medical Address: [address] [place] [address], [place], [address] Email: Ozzie Boyce MD Admit Provider Physician Attending Provider Specialty: Orthopedic Surgery Address: [address] [place] [address], [id number] Email: [email or web address] Current Diagnoses Spondylolisthesis, lumbar region (12/05/18) Spinal stenosis, thoracic region (12/05/18) Spinal stenosis, lumbar region with neurogenic claudication (12/05/18) Past Medical History (Last Updated 11/14/18 @ 10:10 by Gemini Lopez RN) Anemia (Acute Medical) Anxiety (Acute Medical) Aortic atherosclerosis (Acute Medical) per abdominal CT Aortic valve stenosis (Acute Medical) Moderately severe (last echo 06/25/16); Etiology unspecified Bradycardia (Acute Medical) Suggesting some degree of sinus node dysfunction but is asymptomatic... would simply suggest avoiding any medications that might affect sinus node function such as beta blockers or non-dihydropyridine calcium channel blockers. Cervical fusion syndrome (Acute Medical) Cervical stenosis of spinal canal (Acute Medical) Chronic kidney disease (Acute Medical) Stage IV, slowly progressive; Sees Dr. López; acute renal failure in the past - was on dialysis for a whiler in 2009. Chronic left shoulder pain (Acute Medical) DDD (degenerative disc disease), cervical (Acute Medical) Depression (Acute Medical) Disorder (Acute Medical) Ruptured diverticulum, surgical repair Essential hypertension (Acute Medical) Exertional dyspnea (Acute Medical) Mild Fatigue (Acute Medical) Fracture of right wrist (Acute Medical) Hiatal hernia (Acute Medical) History of abdominal pain (Acute Medical) Hospitalized 07/13 w/possible pancreatitis or cholecystitis History of nuclear stress test (Acute Medical ~06/25/16) No evidence for significant vascular disease Hypothyroidism (Acute Medical) Lower extremity edema (Acute Medical) Likely related to her amlodipine medication Lumbar radicular syndrome (Acute Medical) Lumbar stenosis with neurogenic claudication (Acute Medical) Osteoarthritis of left shoulder (Acute Medical) Pacemaker (Acute Medical 08/08/18) Pigmented skin lesion suspicious for malignant neoplasm (Acute Medical) Pulmonary embolism (Acute Medical ~2008) s/p Right shoulder arthroplasty Radius fracture (Acute Medical ~12/09/17) ORIF, Left Recurrent epigastric abdominal pain (Acute Medical) Radiates into left shoulder and posterior scapular area, might relate to her large hiatal hernia (per index clerk). No sx to suggest underlying ischemic heart disease in previous eval including nuclear cardiac stress study. 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 Cognitive/Memory Evaluation Start: 12/08/18 11:20 Freq: Status: Active Protocol: Document 12/08/18 11:20 LNK (Rec: 12/08/18 11:45 LNK [id number]) Evaluation of Cognition Session Time Visit Start Time 10:00 Total Visit Minutes 1,030 Visit Information Visit Number 30 Next Note Type Next Note Type Treatment Note Evaluation Assessment Type SLUMS/ Cognition Past Medical History Patient History Jorge Jensen is an 78- year-old female with past medical history of CAD, sick sinus syndrome status post pacemaker, aortic stenosis, hypertension, hypothyroidism, depression, CKD, iron deficiency anemia who is admitted following T-10-12 & L3-S1 laminectomies, L4-S1 instrumented fusion (TLIF) with bone graft, she was having difficulty with word finding, and was assessed for aphasia by ST. Pt appears to be confused at times and cognitive evaluation to be completed. Previous Therapy Previous Speech-Language Therapy Yes: re: word-finding difficulty Subjective Subjective Pt in bed having completed breakfast. Her [id number] was in attendance. - Formal Assessment Standardized Test SLUMS Administration Complete Raw Score 10/30 Results A score of 10/30 on the SLUMS is indicative of dementia ( range = 1-19) The pt was aware that her performance was not accurate; however she could not correct he r errors. She perseverated on the clock drawing, redrawing the hands of the clock - Cognition Orientation Skill Level Severely Impaired Attention Skill Level Mildly Impaired Divergent Naming Skill Level Severely Impaired Sequencing Skill Level Mildly Impaired Auditory Math Skill Level Severely Impaired Clock Drawing Skill Level Severely Impaired Cognitive Assessment Cognitive Assessment Everett scored 10/30 on the SLUMS. Her score is indicative of dementia. her greatest difficulty is with memory, She did not know the year, could not remember more than 2/5 objects nor could she remember the information presented in a short story. Lou's clock drawing was poor with inaccurate number placement and inability to set clock hands to a specific time. - Memory Short Term Memory Skill Level Severely Impaired Immediate Recall Skill Level Moderately Impaired Word Recall Skill Level Severely Impaired Story Recall Skill Level Severely Impaired - Recommendations Recommendations Pt go to a SNF for skilled speech therapy and cognitive rehabilitation. Referrals Suggested Neurology,Primary Care Physician
[2018-12-08 13:26] VITALS: BP 100/45; PULSE 67; RESP 17; TEMP 37.2; O2SAT 94
--- NOTE | 2018-12-08 14:25 | PT.IPTN ---
Current Diagnoses Spondylolisthesis, lumbar region (12/05/18) Spinal stenosis, thoracic region (12/05/18) Spinal stenosis, lumbar region with neurogenic claudication (12/05/18) Surgery Performed Operation Date: 12/05/18 07:45 Actual Procedures p T-10-12 & L3-S1 laminectomies, L4-S1 instrumented fusion (TLIF) with bone graft(Not Applicable) - Ozzie Boyce MD Physical Therapy Treatment Note M2 PT-IP Current Condition Start: 12/06/18 08:22 Freq: NEEDED Status: Active Protocol: Document 12/06/18 10:35 HH (Rec: 12/06/18 12:08 [id number]) Physical Therapy Current Condition Current Condition Evaluation Date 12/06/18 Treatment Diagnosis T10-12&L3-S1 laminectomies, L4 -S1 TLIF, difficulty in walking, fall risks Onset Date 12/05/18 Precautions Lumbar Precautions Log Roll,No Twisting,Limit Bending,Lifting Restriction of 10 lbs,Gait Belt above Incisional Area Weight Bearing Status Weight Bearing Status Weight Bear as Tolerated M3 PT-IP Subjective Start: 12/06/18 08:22 Freq: NEEDED Status: Active Protocol: Document 12/08/18 14:25 GGD (Rec: 12/08/18 15:48 GGD [id number]) Subjective Physical Therapy Visit Type Type Treatment Note Visit Start Time 14:10 Visit Stop Time 14:23 Total Visit Minutes 13 Number of INSTRUCTOR ADJUNCT PHARMACY TECHNICIAN Visits 1 Physical Therapy Visit Comments Patient Comments Pt states she having pain. M4 PT-IP Mobility and Gait Start: 12/06/18 08:22 Freq: NEEDED Status: Active Protocol: Document 12/08/18 14:25 GGD (Rec: 12/08/18 15:48 GGD [id number]) PT-Bed Mobility Assessment Rolling Type of Rolling Roll to Right Level of Assist Contact Guard Assistance, Minimal Assistance,1 Person Assistance Supine to Sit Supine to Sit Moderate Assistance,1 Person Assistance,Bedrails Sit to Supine Sit to Supine Moderate Assistance,1 Person Assistance,Bedrails Scooting Scooting to Edge of Bed Contact Guard Assistance PT-Transfer Assessment Comments Mobility Comments Pt refused out of bed mobility . M5 PT-IP Objective Assessments Start: 12/06/18 08:22 Freq: NEEDED Status: Active Protocol: Document 12/06/18 10:35 HH (Rec: 12/06/18 12:08 [id number]) Orientation Orientation/Cognition Level of Alertness Alert Orientation Name,Age,Birthday,Month,Date, Year,Day of Week,Place, Situation Language Function Ability Word Finding Difficulties Safety Awareness Decreased Safety Awareness Memory Description Short Term Impaired Comments unable to retain post op precautions Gross Range of Motion Upper Extremity ROM Assessment Bilaterally Impaired Impairments L arm unable to lift pass shoulder level Lower Extremity ROM Assessment Bilaterally Impaired Strength Upper Extremity Strength Assessment Bilaterally Impaired Lower Extremity Strength Assessment Bilaterally Impaired Comments Strength Comments B UEs 3/5 B UEs 3-/5 Coordination Assessment Gross Coordination Gross Coordination WNL Sensation Assessment Sensation Gross Sensation WNL M6 PT-IP Treatment Start: 12/06/18 08:22 Freq: NEEDED Status: Active Protocol: Document 12/07/18 15:58 AW (Rec: 12/07/18 16:15 AW [id number]) Physical Therapy Treatment Exercises Exercises Ankle Pumps,Gluteal Sets,Quad Sets,Heel Slides Education Education Provided Safety M7 PT-IP Assessment and Plan Start: 12/06/18 08:22 Freq: NEEDED Status: Active Protocol: Document 12/08/18 14:25 GGD (Rec: 12/08/18 15:48 GGD [id number]) PT Summary Assessment and Plan Summary Assessment Summary PT needed mod A for bed mobility. She refused out of bed mobility and returned to bed quickly. Frequency of Treatment Frequency Of Treatment Twice a Day Treatment Plan Physical Therapy Treatment Plan Bed Mobility Training,Transfer Training,Gait Training, Therapeutic Exercise,Balance Retraining,Post Op Education, Discharge Planning,Hot or Cold Pack,Neuromuscular Re-ed Recommendations To Nursing Amount of Assist Needed 2 Person Assist Discharge Recommendations PT Discharge Recommendations SNF Rehab
--- NOTE | 2018-12-08 14:54 | PC.NURSE ---
Pt refused PT x2 today. She is confused but pleasant. Dressing to back is cdi. Tried to have a bm on the bed hagen but not able. Pt visiting with her cousin. Family here for a while earlier to visity.
--- NOTE | 2018-12-08 15:43 | PM.PN.1 ---
Subjective Subjective Date Patient Seen: 12/08/18 Interval history: Jorge Jensen is an 78-year-old female with past medical history of CAD, sick sinus syndrome status post pacemaker, aortic stenosis, hypertension, hypothyroidism, depression, CKD, iron deficiency anemia who is admitted following T-10-12 & L3-S1 laminectomies, L4-S1 instrumented fusion (TLIF) with bone graft, she is currently postoperative day# 3. Medicine was consulted for patient's presumably new expressive aphasia. The patient is resting in bed comfortably and in no acute distress. She is quite somnolent but arousable. She has had very little narcotic medication over last 24 hours with one dose of hydrocodone 5-325 mg last night at 2100. She is likely somnolent due to the acute worsening of her renal disease. She endorses postoperative back pain controlled with acetaminophen and hydrocodone. She endorses constipation and a bowel regimen has been implemented. She has no other complaints and denies headache, shortness of breath, chest pain, abdominal pain, nausea, vomiting, fever, chills, dysuria, or diarrhea. She is voiding without difficulty. She is up ambulating minimally with assistance and PT/OT. Exam Vital Signs (past 8 hours): - 12/08/18 13:26 12/08/18 15:58 Temperature 98.9 F 99.0 F Pulse Rate 67 61 Respiratory Rate 17 16 Blood Pressure 100/45 L 108/56 L Pulse Oximetry 94 97 Fraction of Inspired Oxygen 24 Oxygen Delivery Method Room Air Oxygen Flow Rate 0 Narrative Exam Narrative: General: Elderly female lying in bed and in no acute distress, somnolent but arousable, well-developed, well-nourished, very mild expressive aphasia but appropriately interactive. HEENT: Normocephalic, atraumatic. External ears without defect. Pupils equal, round, and reactive to light and accommodation. Anicteric sclerae, moist conjunctivae, and no lid lag. Dry oral mucosa. Neck: Supple with full range of motion. No jugular venous distension. No bruits. No lymphadenopathy or thyromegaly. Cardiovascular: Regular rate and rhythm with grade 2/6 holosystolic murmur at LSB. No rubs or gallops appreciated. Pulmonary: Clear to auscultation bilaterally without crackles, wheezes, or rhonchi. Normal respiratory effort with no use of accessory muscles. Abdomen: Soft, bowel sounds present, nontender, nondistended. No hepatosplenomegaly appreciated. Small chronic rubbery irregular mass in abdomen possibly field support representative of lipoma or ventral hernia. Extremities: No clubbing, cyanosis, or edema. Skin: Normal temperature, turgor, and texture; no rash, ulcers, or subcutaneous nodules appreciated. Neurological: Cranial nerves grossly intact. Mild expressive aphasia. No other focal neurological deficit. Psychiatric: Somnolent but arousable. Normal mood and flat affect. Alert and oriented to person, place, and time. Objective Labs Result Diagrams: 12/08/18 05:12 12/08/18 05:12 Labs: Laboratory Results - last 24 hr 12/08/18 12/08/18 12/08/18 05:12 05:12 05:12 WBC 9.2 RBC 2.40 L Hgb 7.9 L Hct 23.4 L MCV 97.7 MCH 32.8 MCHC 33.6 RDW 13.7 Plt Count 179 Neut % (Auto) 82.2 H Lymph % (Auto) 6.6 L [place] % (Auto) 5.4 Eos % (Auto) 5.4 H Baso % (Auto) 0.4 Neut # (Auto) 7600 H Lymph # (Auto) 600 L [place] # (Auto) 500 Eos # (Auto) 500 H Baso # (Auto) 0 Sodium 135 L Potassium 4.2 Chloride 103 Carbon Dioxide 28 BUN 41 H Creatinine 1.90 H Estimated GFR 25.4 L BUN/Creatinine Ratio 21.6 Glucose 96 Calcium 9.0 Magnesium 2.1 Vitamin B12 232 L Folate 10.0 Assessment & Plan Assessment & Plan narrative: Jorge Jensen is an 78-year-old female with past medical history of CAD, sick sinus syndrome status post pacemaker, aortic stenosis, hypertension, hypothyroidism, depression, CKD, iron deficiency anemia who is admitted following T-1012 & L3-S1 laminectomies, L4-S1 instrumented fusion (TLIF) with bone graft, she is currently postoperative day# 3. Medicine was consulted for patient's presumably new expressive aphasia. 1. Acute aphasia, not present on admission. Improving. -Last known normal was prior to operative interventions so she was outside the window for any medical interventions and additionally acutely postoperative. -Unclear etiology. Differential diagnosis includes: New CVA (no CT evidence of acute CVA) versus side effect of anesthesia versus unmasking of previous CVA deficit versus decreased perfusion/hypoxemic brain injury. She does have significant heart history but has had no chest pain and troponin was within normal limits. -Repeat CT brain without contrast demonstrated no acute infarct or intracranial hemorrhage and stable lacunar infarct in the right basal ganglia. Unable to obtain an MRI due to pacemaker. -She clinically seems to be improving but still has some mild expressive aphasia. -Continue physical, occupational and speech therapy evaluations and treatment. -Limit narcotics as much as possible. Scheduled acetaminophen 975 mg 3 times daily and may use hydrocodone 5 mg every 6 hours as needed sparingly and only for severe break through pain. Discontinued IV narcotics. -Continue aspirin 81 mg daily. -Fasting lipid panel well controlled and demonstrated: Total cholesterol 122, triglycerides 66, LDL 59, HDL 50. 2. Acute kidney injury on on chronic kidney disease stage IV, not present on admission. Active. -Likely multifactorial and secondary to decreased PO intake, medication induced, and decreased renal perfusion intra-operatively. -Baseline creatinine 1.6. Creatinine now 1.9. Creatinine clearance calculated to be 16. -Discontinued nephrotoxic medications for the next 1-2 days including furosemide, gabapentin and valacyclovir. -Started gentle IV fluid hydration with normal saline at 75 mL/hr for 1L due to aortic stenosis for which she is pre and afterload dependent. -Continue calcium carbonate 600 mg daily and Veltassa 8.4 g daily. -Avoid nephrotoxic agents and optimize renal perfusion. -Continue to monitor renal function daily. 3. Acute blood loss anemia on anemia of chronic kidney disease, present on admission. Stable. -Unclear baseline. Acute portion secondary to acute blood loss from extensive back surgery. -B12 level mildly low at 232 and started B12 100 mcg daily. Folate level normal. 4. CAD, chronic, present on admission. Presumed stable. -Lipid panel as above which does not require medical therapy. 5. Hypertension, chronic, present on admission. Stable. -Continue home amlodipine 5 mg daily. 6. Aortic stenosis, chronic, present on admission. Presumed stable. -Hold Lasix for 1-2 days due to BRISSA as above. -Ordered gentle IV fluid hydration as above. 7. Hypothyroidism, chronic, present on admission. Stable. -TSH mildly low at 0.33 but free T4 normal at 1.15. -Continue home levothyroxine 75 mcg daily. 8. Depression, chronic, present on admission. Stable. -Continue home citalopram 20 mg daily. 9. Overactive bladder, chronic, present on admission. Stable. -Continue oxybutynin 5 mg daily at bedtime. 10. GERD, chronic, present on admission. Stable. -Continue famotidine 20 mg twice daily. Thank you for this most interesting consult. Medicine team will continue to follow along with you. Quality VTE Deep Vein Thrombosis/Pulmonary Embolism Present on Admission: No
[2018-12-08 15:58] VITALS: BP 108/56; PULSE 61; RESP 16; TEMP 37.2; O2SAT 97
--- NOTE | 2018-12-08 16:33 | OT.IP.TRT ---
Current Diagnoses Spondylolisthesis, lumbar region (12/05/18) Spinal stenosis, thoracic region (12/05/18) Spinal stenosis, lumbar region with neurogenic claudication (12/05/18) Surgery Performed Operation Date: 12/05/18 07:45 Actual Procedures p T-10-12 & L3-S1 laminectomies, L4-S1 instrumented fusion (TLIF) with bone graft(Not Applicable) - Ozzie Boyce MD Occupational Therapy Treatment Note M2 OT-IP Current Condition Start: 12/06/18 17:03 Freq: Status: Active Protocol: Document 12/06/18 17:04 CCC (Rec: 12/06/18 17:32 [facility] [id number]) Occupational Therapy Current Condition Current Condition Evaluation Date 12/06/18 Treatment Diagnosis T10-11, T11-12 laminectomies, L4-5, L5-S1 TLIF, decreased self-care and cog Diagnosis Onset Date 12/05/18 Post Operative Precautions Lumbar Precautions Log Roll,No Twisting,Limit Bending,Lifting Restriction of 10 lbs,Gait Belt above Incisional Area Weight Bearing Status Weight Bearing Status Weight Bear as Tolerated M3 OT- IP Subjective and Pain Start: 12/06/18 17:03 Freq: Status: Active Protocol: Document 12/08/18 15:47 CGR (Rec: 12/08/18 16:14 CGR [id number]) OT- Subjective Occupational Therapy Visit Type Type Progress Note Visit Start Time 15:09 Visit Stop Time 15:39 Total Visit Minutes 30 Notes Per nursing, pt has not been out of bed yet today. Occupational Therapy Visit Comments Patient Comments I tried to go to the bathroom on the bedpan but wasn't able to. OT Pain Assessment Pain When Pain Assessed At Rest Pain Present Pain Present Denied Pain M4 OT- IP ADL's Start: 12/06/18 17:03 Freq: Status: Active Protocol: Document 12/08/18 15:47 CGR (Rec: 12/08/18 16:14 CGR [id number]) OT [id number] General Evaluation Self-Feeding Ability Independent Comments OT Self-Feeding Comments Pt feeding self strawberry smoothy OT ADL-Grooming General Evaluation Grooming Ability Standby Assistance Areas Needing Assistance Retrieving/Set-up of Grooming Items,Combing/Brushing Hair, Face Washing Comments OT Grooming Comments standing at sink OT ADL-Oral Care General Eval Oral Care Ability Standby Assistance Areas of Assistance Brushing Teeth,Retrieving/Set- Up of Items Comments Oral Care Comments Pt stood at sink for brushing teeth. OT ADL-Dressing Comments OT Dressing Comments Not performed on this date. OT ADL-Toileting Comments OT Toileting Comments Attempted to have BM seated on BSC but unable. Pt with only hospital gown and no need for pericare. OT ADL-Bathing Comments OT Bathing Comments Not performed on this date. M5 OT- IP IADL's Start: 12/06/18 17:03 Freq: Status: Active Protocol: Document 12/06/18 17:04 [facility] (Rec: 12/06/18 17:32 [facility] [id number]) OT-Instrumental Activities of Daily Living Home Safety Awareness Home Safety Comments At this time due to having difficulty with functional cognition and sequencing through steps of ADl's and needing extensive assist for transfers, pt will need assist for all IADL's at thsi time. M6 OT- IP Functional Cognition Start: 12/06/18 17:03 Freq: Status: Active Protocol: Document 12/08/18 15:47 CGR (Rec: 12/08/18 16:14 CGR [id number]) Cognitive Factors Limiting Selfcare Function Cognitive Ability Level of Alertness Alert Patient Orientation Name,Month,Date,Year,Place Attention Span Ability Capable of Focused Attention, Capable of Sustained Attention Ability to Follow Commands Able to Follow One Step Commands Memory Description Immediate Impaired,Short Term Impaired,Fci Impaired Safety Awareness Decreased Recall of Precautions,Decreased Ability to Apply Precautions Problem Solving Ability Unable to Identify Errors, Needs Assist to Identify Solutions Cognitive Comments Cognitive Assessment Comments May benefit from cog assessment. M7 OT- IP Mobility and Balance Start: 12/06/18 17:03 Freq: Status: Active Protocol: Document 12/08/18 15:47 CGR (Rec: 12/08/18 16:14 CGR [id number]) OT- Bed Mobility Assessment Rolling Type of Rolling Log Rolling Level of Assistance Minimal Assistance Supine to Sit Supine to Sit Assist Minimal Assistance Scooting Scooting to Edge of Bed Standby Assistance OT-Transfer Assessment Sit to and From Stand Sit to and from Stand Moderate Assistance Transfers Transfer Ability Minimal Assistance Technique Transfer Destination Bed,Bedside Commode,Chair Transfer Technique Stand Step Pivot Devices Transfer Assistive Devices Gait Belt,Front Wheeled Walker Comments Mobility Comments Pt needed VC for transfers and hand placements. OT- Gait Assessment Gait Gait Assistance Required: Minimum Assistance Assistive Devices Assistive Device Gait Belt,Front Wheeled Walker Comments Gait Ability Comments Mobility around the room with CGA to min a for use of walker and safety. OT- Balance Assessment Sitting Balance and Reactions Static Sitting Balance Ability Good Dynamic Sitting Balance Ability Fair M8 OT- IP Objective Assessments Start: 12/06/18 17:03 Freq: Status: Active Protocol: Document 12/06/18 17:04 [facility] (Rec: 12/06/18 17:32 [facility] [id number]) OT Gross Range of Motion Upper Extremity Range of Motion Assessment Right Impaired ROM Impairments Pt's RUE 10 degress in scaption, WFL from elbow to distal, LUE WFL OT Strength Comments Strength Comments RUE 3-/5 to 4-/5, LUE 4-/5 throughout. OT- Coordination Assessment Upper Extremity Finger to Nose Test Right UE Impaired Comments Coordination Comments Increased time to touch nose with right hand and slightly off. Able to do finger to thumb coordination with both hands. OT-Muscle Tone Assessment Muscle Tone WNL Yes Comments Muscle Tone Comments Pt at rest has a tremor and tends to be unsteady when trying to reach out to touch therpaist's hand. OT Sensation Assessment Comments Summary Comments RUE impaired for light touch throughtout and even when left hand touched would state right hand being touched. Pt describes the sensation of numbness and tingling RUE> LUE . M9 OT- IP Assessment and Plan Start: 12/06/18 17:03 Freq: Status: Active Protocol: Document 12/08/18 15:47 CGR (Rec: 12/08/18 16:14 CGR [id number]) OT Summary Assessment and Plan Potential Rehabilitation Potential Fair Analytic Complexity at Evaluation Moderate Summary OT Impairments Pain,Strength,Balance, Sensation,Functional Cognition ,Functional Mobility,Self- Feeding,Grooming,Dressing, Toileting,Bathing,Toilet Transfers,Shower Transfers Progress Towards Goals Slow Progress due to Pain,Slow Progress due to Medical Issues,Slow Progress due to Activity Tolerance,Slow Progress due to Cognition Assessment Summary Pt improving with mobility and ADLs in this session. Pt appears confused but is aware that she is confused. Pt will benefit from continued OT services. Recommend d/c to STR . Goals Self-Feeding Goal Standby Assistance Grooming Goal Standby Assistance Dressing Goal Minimal Assistance Toileting Goal Minimal Assistance Bathing Goal Moderate Assistance Toilet Transfer Goal Contact Guard Assistance Shower Transfer Goal Minimal Assistance OT-Other Goals grooming while standing Days to Meet Goals 6 Frequency of Treatment Frequency Of Treatment Once a Day Treatment Plan OT Treatment Plan ADL Training,Functional Cognition Training,Functional Mobility,Patient/Family Education,Discharge Planning Other Treatment Recommendations and Next lowe body dressing equipment Treatment Focus education , back precautions Discharge Recommendations OT Discharge Recommendations SNF Rehab Home Equipment Needs defer to SNF
--- NOTE | 2018-12-08 19:45 | PC.NURSE ---
jPt had no IV at shift change. Thus far this shift, three RNs have tried to start her: tiny veins and they roll or infiltrate. aware.
[2018-12-08 20:00] VITALS: BP 126/51; PULSE 69; RESP 14; TEMP 36.9; O2SAT 94
[2018-12-08] MEDS: SODIUM CHLORIDE 0.9% 1,000 ML 75 ML IV (20:23)
[2018-12-08] MEDS: SENNOSIDES 8.6 MG TABLET 17.2 MG PO (20:26)
[2018-12-08] MEDS: OXYBUTYNIN 5 MG ER TAB PO (20:29)
[2018-12-08 23:45] VITALS: BP 118/48; PULSE 58; RESP 16; TEMP 36.6; O2SAT 96
--- NOTE | 2018-12-09 00:33 | PC.NURSE ---
Pt. declined Vicodin 0000 dose, states I don't need any pain medication, I have no pain . Will cont. POC & monitor.
[2018-12-09] MEDS: HYDROCODONE/ACET 5/325 TABLET 1 TAB PO ×2 (03:26→12:04)
[2018-12-09 04:29] VITALS: BP 114/52; PULSE 61; RESP 16; TEMP 36.8; O2SAT 95
[2018-12-09] MEDS: SODIUM CHLORIDE 0.9% FLUSH 10 ML IV ×2 (05:16→08:35)
[2018-12-09 05:26] LABS: Add Manual Diff / Slide Review NO; Basophils Absolute Auto 100 /uL (0-100); Basophils Percent Auto 0.8 % (0-2); Eosinophils Absolute Auto 600 /uL (0-450); Eosinophils Percent Auto 7.7 % (2-4); Hematocrit 24.2 % (36-46); Lymphocytes Absolute Auto 800 /uL (1100-4500); Lymphocytes Percent Auto 9.8 % (25-40); Mean Corpuscular Hemoglobin 32.3 PG (26-34); Mean Corpuscular Volume 97.8 fL (80-100); Monocytes Absolute Auto 600 /uL (0-900); Monocytes Percent Auto 7.8 % (3-14); Neutrophils Absolute Auto 5900 /uL (1500-7000); Neutrophils Percent Auto 73.9 % (50-75); Platelet Count 215 X10^3/uL (150-400); Red Blood Cell Count 2.48 X10^6/uL (4.0-5.2); Red Cell Distribution Width 13.8 % (11.6-14.8)
[2018-12-09 05:31] LABS: Alanine Aminotransferase 9 IU/L (9-52); Alkaline Phosphatase 63 U/L (38-126); Aspartate Aminotransferase 30 IU/L (14-36); BUN Creatinine Ratio 28.1 (6-22); Bilirubin Total 0.3 mg/dL (0.2-1.3); Blood Urea Nitrogen 45 mg/dL (7-17); Calcium 9.2 mg/dL (8.4-10.2); Carbon Dioxide 27 mmol/L (22-32); Chloride 102 mmol/L (98-107); Globulin 3.1 g/dL (1.7-4.1); Glucose 100 mg/dL (80-110); HEMOLYSIS < 15 (0-50); Potassium 4.3 mmol/L (3.4-5.1); Sodium 135 mmol/L (137-145); Total Protein 6.1 g/dL (6.3-8.2)
[2018-12-09] MEDS: LEVOTHYROXINE 75 MCG TABLET PO (06:07)
--- NOTE | 2018-12-09 06:37 | PC.NURSE ---
Felix DC'd & catheter intact, tolerated procedure well. Pt. ambulated to the BR 3-11 shift. Denies any back pain @ this time.
[2018-12-09 08:00] VITALS: BP 148/61; PULSE 62; RESP 16; TEMP 36.6; O2SAT 98
--- NOTE | 2018-12-09 08:12 | P.PN_ITS ---
Subjective Subjective Date Patient Seen: 12/09/18 Time Patient Seen: 08:12 Interval history: She is doing better today. Aphasia improved. Still approximately 4/10 pain in the lower back. No leg pain. Exam Vital Signs (past 8 hours): - 12/09/18 04:29 Temperature 98.2 F Pulse Rate 61 Respiratory Rate 16 Blood Pressure 114/52 L Pulse Oximetry 95 Fraction of Inspired Oxygen 24 Oxygen Delivery Method Room Air Oxygen Flow Rate 0 Const Orientation: alert and oriented x3 Back/Spine/Pelvis Other: CDI. 5/5 motor both lower extremities Objective Labs Result Diagrams: 12/09/18 04:40 12/09/18 04:40 Labs: Laboratory Results - last 24 hr 12/09/18 12/09/18 04:40 04:40 WBC 8.0 RBC 2.48 L Hgb 8.0 L Hct 24.2 L MCV 97.8 MCH 32.3 MCHC 33.0 RDW 13.8 Plt Count 215 Neut % (Auto) 73.9 Lymph % (Auto) 9.8 L [place] % (Auto) 7.8 Eos % (Auto) 7.7 H Baso % (Auto) 0.8 Neut # (Auto) 5900 Lymph # (Auto) 800 L [place] # (Auto) 600 Eos # (Auto) 600 H Baso # (Auto) 100 Sodium 135 L Potassium 4.3 Chloride 102 Carbon Dioxide 27 BUN 45 H Creatinine 1.60 H Estimated GFR 31.0 L BUN/Creatinine Ratio 28.1 H Glucose 100 Calcium 9.2 Total Bilirubin 0.3 AST 30 ALT 9 Alkaline Phosphatase 63 Total Protein 6.1 L Albumin 3.0 L Globulin 3.1 Albumin/Globulin Ratio 1.0 Assessment & Plan Post-op Postoperative Procedures: Procedures Operation Date: 12/05/18 07:45 Actual Procedures Side Surgeon p T-10-12 & L3-S1 laminectomies, L4-S1 instrumented fusion (TLIF) with bone graft Not Applicable Ozzie Boyce MD Her head CT was stable. Her renal function is improving and her H&H is slightly improved. I feel this point she is stable for discharge to [facility]. Quality VTE Deep Vein Thrombosis/Pulmonary Embolism Present on Admission: No
--- NOTE | 2018-12-09 08:18 | P.DS_ITS ---
History of Present Illness History of Present Illness Date Patient Seen: 12/09/18 Time Patient Seen: 08:18 Chief complaint: [id number] Narrative: 78-year-old female with myelopathy. She has had progressively weakening legs over the past year. She had an ACDF last fall for her cervical spine. Still was progressively getting weaker in the legs was felt that she would need the thoracic and lumbar decompressed as well. Discharge Providers Provider Date of admission: 12/05/18 06:03 Discharge Date: 12/09/18 Primary care physician: Christian Schneider MD Consults: 12/05/18 15:41 Consult to Occupational Therapy Evaluate & Treat Comment: Physician Instructions: Evaluate and treat Consult to Physical Therapy Evaluate & Treat Comment: Physician Instructions: Evaluate and Treat 12/06/18 12:30 Consult to Speech Therapy Evaluate & Treat Comment: Physician Instructions: Evaluate and treat Discharge provider: Ozzie Boyce MD Summary Hospital Course Discharge Diagnosis: Lumbar thoracic stenosis with myelopathy Hospital Course: She was admitted to the operating room on 12/05/2018 where she underwent a T11 through T12 laminectomy as well as a L3 through S1 laminectomy and L4 through S1 instrumented fusion. Postoperatively she had problems with aphasia. She could talk but had significant word searching. A head CT came back with no acute bleed. Repeat head CT 2 days later had no change. Her speech gradually improved and was almost back to normal by the day of discharge. She has chronic renal failure and had an acute episode on top of this but by date of discharge her kidney function labs were improving. She had some acute blood loss anemia and was hypotensive at 1st. This stabilized and her blood pressure stabilized. By the date of discharge was felt that she was stable to go to skilled rehab. Status at Discharge Cognitive/behavioral status at discharge: oriented Functional status at discharge: uses cane/walker Overall status at discharge: patient is progressing back to baseline Exam Vital Signs (past 8 hours): - 12/09/18 04:29 Temperature 98.2 F Pulse Rate 61 Respiratory Rate 16 Blood Pressure 114/52 L Pulse Oximetry 95 Fraction of Inspired Oxygen 24 Oxygen Delivery Method Room Air Oxygen Flow Rate 0 Const Orientation: alert and oriented x3 Back/Spine/Pelvis Other: CDI. 5/5 motor both lower extremities. Objective Labs Result Diagrams: 12/09/18 04:40 12/09/18 04:40 Labs: Laboratory Results - last 24 hr 12/09/18 12/09/18 04:40 04:40 WBC 8.0 RBC 2.48 L Hgb 8.0 L Hct 24.2 L MCV 97.8 MCH 32.3 MCHC 33.0 RDW 13.8 Plt Count 215 Neut % (Auto) 73.9 Lymph % (Auto) 9.8 L [place] % (Auto) 7.8 Eos % (Auto) 7.7 H Baso % (Auto) 0.8 Neut # (Auto) 5900 Lymph # (Auto) 800 L [place] # (Auto) 600 Eos # (Auto) 600 H Baso # (Auto) 100 Sodium 135 L Potassium 4.3 Chloride 102 Carbon Dioxide 27 BUN 45 H Creatinine 1.60 H Estimated GFR 31.0 L BUN/Creatinine Ratio 28.1 H Glucose 100 Calcium 9.2 Total Bilirubin 0.3 AST 30 ALT 9 Alkaline Phosphatase 63 Total Protein 6.1 L Albumin 3.0 L Globulin 3.1 Albumin/Globulin Ratio 1.0 Discharge Plan Discharge Plan Patient Disposition: SNF Transfer to: [facility] Under care of provider: Facility physician Consult as needed: Dental, Hearing, Mental health, Podiatry and Vision Discharge Med Rec/Prescriptions Prescriptions: New aspirin 81 mg Tablet,Delayed Release (Dr/Ec) 81 mg PO DAILY Qty: 30 RF: 0 docusate sodium [DOK] 100 mg Capsule 100 mg PO BID PRN (Reason: constipation) Qty: 30 RF: 0 hydrocodone-acetaminophen 5-325 mg Tablet 1 tab PO Q6HR PRN (Reason: pain) Qty: 30 RF: 0 Continued amlodipine 5 mg Tablet 5 mg PO DAILY RF: 0 acetaminophen [Acetaminophen Extra Strength] 500 mg Tablet 1,000 mg PO TID RF: 0 levothyroxine 75 mcg Tablet 75 mcg PO DAILY RF: 0 calcium carbonate 600 mg calcium (1,500 mg) Tablet 600 mg PO DAILY RF: 0 citalopram 20 mg Tablet 20 mg PO DAILY RF: 0 ascorbic acid (vitamin C) 500 mg Tablet 500 mg PO DAILY RF: 0 gabapentin 300 mg Capsule 300 mg PO TID RF: 0 valacyclovir 1 gram Tablet 1,000 mg PO TID PRN (Reason: shingles) RF: 0 famotidine 20 mg Tablet 20 mg PO BID RF: 0 oxybutynin chloride 5 mg Tablet Extended Release 24hr 5 mg PO BEDTIME RF: 0 Veltassa 8.4 gram Powder In Packet 8.4 g PO DAILY RF: 0 furosemide 40 mg Tablet 40 mg PO DAILY RF: 0 Follow up/Referrals: Christian Schneider MD [Primary Care Provider] - Ozzie Boyce MD [Physician] - 12/18/18 3:00 pm (Postop visit with CLARITA Moya at [facility] in ) Discharge Health Status Brief summary of current health status: Underwent T10 through T12 and L3 through S1 laminectomies with L4 through S1 fusion on 12/05/2018. She did have postoperative aphasia with mostly word searching consistent with a mild stroke that had mostly resolved by the date of discharge. Multidrug resistant organism: No MDRO Precautions: [place] Provider Discharge Instructions Diet: Diet as Tolerated Liquid consistency: Normal/Thin Food texture: Regular Skin/Wound/Dressing Care Report to your healthcare provider any signs of infection, such as:: chills, fever, night sweats, increased pain, unusual drainage and unusual redness Dressing: may change dressing and shower prn starting tomorrow Special Rehabilitation Services Reason for rehabilitation: Post-operative therapy Rehab type: Physical therapy, Occupational therapy and Speech therapy Restrictions to mobility: 10 lbs max lift. limited bend/twist Visit Report/Discharge Packet Instructions: DI for Transforaminal Lumbar Interbody Fusion Stand Alone Forms: Surgery Discharge Discharge Data Primary Care Provider: Christian Schneider Quality VTE Deep Vein Thrombosis/Pulmonary Embolism Present on Admission: No
[2018-12-09] MEDS: ACETAMINOPHEN 325 MG TABLET 975 MG PO (08:31)
[2018-12-09] MEDS: CITALOPRAM 20 MG TABLET PO (08:34)
[2018-12-09] MEDS: ASCORBIC ACID 500 MG TABLET PO (08:34)
[2018-12-09] MEDS: AMLODIPINE 5 MG TABLET PO (08:34)
[2018-12-09] MEDS: ASPIRIN EC 81 MG TABLET PO (08:34)
[2018-12-09] MEDS: DOCUSATE 100 MG CAPSULE PO (08:34)
[2018-12-09] MEDS: CYANOCOBALAMIN (VITAMIN B-12) 100 MCG TABLET PO (08:35)
[2018-12-09] MEDS: CALCIUM CARBONATE 600 MG TABLET PO (08:35)
[2018-12-09] MEDS: PATIROMER CALCIUM SORBITEX 8.4 GM 8.4 EACH PO (08:36)
--- NOTE | 2018-12-09 08:49 | CM.DANOTE ---
Addendum entered by LINDA Carroll 12/09/18 14:33: ADD: Per RN, pt transport has still not arrived from [facility]. called and they apologized that they did not set up w/c van transport. [facility] called [facility] and scheduled cabulance for 1530. RODY updated RN. BF Original Note: DCP Discharge SNF Per Ortho MD, pt is medically stable to d/c to SNF today. Per RN, family plans to be bedside around 1100 today to help bring clothes and prepare pt for d/c to SNF. RODY faxed d/c summary, PASRR, signed med rec, scripts to [facility] at requested RN fax #[phone] to review. [facility] confirms that they will set up w/c van transport for around 1230 today. RODY met bedside with pt and explained role and pt A&O x3 and pt agreeable with d/c plan today and SW provided her Medicare Rights and she acknowledged understanding and signed her Medicare Message. Plan: Patient to d/c today to [facility] SNF around 1230 prior to safe return home. LINDA Carroll
--- NOTE | 2018-12-09 09:13 | P.PN_ITS ---
Subjective Subjective Date Patient Seen: 12/09/18 Interval history: Jorge Jensen is an 78-year-old female with past medical history of CAD, sick sinus syndrome status post pacemaker, aortic stenosis, hypertension, hypothyroidism, depression, CKD, iron deficiency anemia who is admitted following T-10-12 & L3-S1 laminectomies, L4-S1 instrumented fusion (TLIF) with bone graft, she is currently postoperative day# 4. Medicine was consulted for patient's presumably new expressive aphasia. The patient is resting in bed comfortably. She more awake and alert today. Her renal function has improved back to her baseline creatinine of 1.6 after IV fluid administration and discontinuation of her nephrotoxin medications. She continues to endorse low back pain from her surgery that she rates a +3/10 in severity and is controlled with acetaminophen and hydrocodone. She has very mild expressive aphasia that seems to be slowly resolving. She continues to endorse constipation but states that ?she feels like she could have a bowel movement but when she tries nothing comes out. Ordered glycerin suppository and mineral oil enema if does not produce BM. She has no other complaints and denies headache, shortness of breath, chest pain, abdominal pain, nausea, vomiting, fever, chills, dysuria, or diarrhea. She is voiding without difficulty. She is up ambulating minimally with assistance and PT/OT. Exam Vital Signs (past 8 hours): - 12/09/18 04:29 12/09/18 08:00 Temperature 98.2 F 98 F Pulse Rate 61 62 Respiratory Rate 16 16 Blood Pressure 114/52 L 148/61 H Pulse Oximetry 95 98 Fraction of Inspired Oxygen 24 Oxygen Delivery Method Room Air Oxygen Flow Rate 0 Narrative Exam Narrative: General: Elderly female lying in bed and in no acute distress, well-developed, well-nourished, very mild expressive aphasia but appropriately interactive. HEENT: Normocephalic, atraumatic. External ears without defect. Pupils equal, round, and reactive to light and accommodation. Anicteric sclerae, moist conjunctivae, and no lid lag. Dry oral mucosa. Neck: Supple with full range of motion. No jugular venous distension. No bruits. No lymphadenopathy or thyromegaly. Cardiovascular: Regular rate and rhythm with grade 2/6 holosystolic murmur at LSB. No rubs or gallops appreciated. Pulmonary: Clear to auscultation bilaterally without crackles, wheezes, or rhonchi. Normal respiratory effort with no use of accessory muscles. Abdomen: Soft, bowel sounds present, nontender, nondistended. No hepatosplenomegaly appreciated. Small chronic rubbery irregular mass in abdomen possibly inbound call center representative of lipoma or ventral hernia. Extremities: No clubbing, cyanosis, or edema. Skin: Normal temperature, turgor, and texture; no rash, ulcers, or subcutaneous nodules appreciated. Neurological: Cranial nerves grossly intact. Mild expressive aphasia. No other focal neurological deficit. Psychiatric: Somnolent but arousable. Normal mood and flat affect. Alert and oriented to person, place, and time. Objective Labs Result Diagrams: 12/09/18 04:40 12/09/18 04:40 Labs: Laboratory Results - last 24 hr 12/09/18 12/09/18 04:40 04:40 WBC 8.0 RBC 2.48 L Hgb 8.0 L Hct 24.2 L MCV 97.8 MCH 32.3 MCHC 33.0 RDW 13.8 Plt Count 215 Neut % (Auto) 73.9 Lymph % (Auto) 9.8 L [place] % (Auto) 7.8 Eos % (Auto) 7.7 H Baso % (Auto) 0.8 Neut # (Auto) 5900 Lymph # (Auto) 800 L [place] # (Auto) 600 Eos # (Auto) 600 H Baso # (Auto) 100 Sodium 135 L Potassium 4.3 Chloride 102 Carbon Dioxide 27 BUN 45 H Creatinine 1.60 H Estimated GFR 31.0 L BUN/Creatinine Ratio 28.1 H Glucose 100 Calcium 9.2 Total Bilirubin 0.3 AST 30 ALT 9 Alkaline Phosphatase 63 Total Protein 6.1 L Albumin 3.0 L Globulin 3.1 Albumin/Globulin Ratio 1.0 Assessment & Plan Assessment & Plan narrative: Jorge Jensen is an 78-year-old female with past medical history of CAD, sick sinus syndrome status post pacemaker, aortic stenosis, hypertension, hypothyroidism, depression, CKD, iron deficiency anemia who is admitted following T-10-12 & L3-S1 laminectomies, L4-S1 instrumented fusion (TLIF) with bone graft, she is currently postoperative day# 3. Medicine was consulted for patient's presumably new expressive aphasia. 1. Acute aphasia, not present on admission. Improving. -Last known normal was prior to operative interventions so she was outside the window for any medical interventions and additionally acutely postoperative. -Unclear etiology. Differential diagnosis includes: New CVA (no CT evidence of acute CVA) versus side effect of anesthesia versus unmasking of previous CVA deficit versus decreased perfusion/hypoxemic brain injury. She does have significant heart history but has had no chest pain and troponin was within normal limits. -Repeat CT brain without contrast demonstrated no acute infarct or intracranial hemorrhage and stable lacunar infarct in the right basal ganglia. Unable to obtain an MRI due to pacemaker. -She clinically seems to be improving but still has some mild expressive aphasia. -Continue physical, occupational and speech therapy evaluations and treatment. -Limit narcotics as much as possible. Scheduled acetaminophen 975 mg 3 times daily and may use hydrocodone 5 mg every 6 hours as needed sparingly and only for severe break through pain. Discontinued IV narcotics. -Continue aspirin 81 mg daily. -Fasting lipid panel well controlled and demonstrated: Total cholesterol 122, tr iglycerides 66, LDL 59, HDL 50. 2. Acute kidney injury on on chronic kidney disease stage IV, not present on admission. BRISSA resolved. -Likely multifactorial and secondary to decreased PO intake, medication induced, and decreased renal perfusion intra-operatively. -Baseline creatinine 1.6. Creatinine now 1.9. Creatinine clearance calculated to be 16. -Discontinued nephrotoxic medications including furosemide, gabapentin and valacyclovir and recommend these be held until 12/11/2018 at which time they may be restarted pending her creatinine level. -Started gentle IV fluid hydration with normal saline at 75 mL/hr for 1L due to aortic stenosis for which she is pre and afterload dependent. -Continue calcium carbonate 600 mg daily and [place] 8.4 g daily. -Avoid nephrotoxic agents and optimize renal perfusion. -Continue to monitor renal function daily. 3. T-10-12 & L3-S1 laminectomies, L4-S1 instrumented fusion (TLIF) with bone graft, present on admission. Stable. -Continue postoperative management per orthopedic surgery. 4. Acute blood loss anemia on anemia of chronic kidney disease, present on admission. Stable. -Unclear baseline. Acute portion secondary to acute blood loss from extensive back surgery. -B12 level mildly low at 232 and started B12 100 mcg daily. Folate level normal. 5. CAD, chronic, present on admission. Presumed stable. -Lipid panel as above which does not require medical therapy. 6. Hypertension, chronic, present on admission. Stable. -Continue home amlodipine 5 mg daily. 7. Aortic stenosis, chronic, present on admission. Presumed stable. -Hold Lasix for 1-2 days due to BRISSA as above. -Ordered gentle IV fluid hydration as above. 8. Hypothyroidism, chronic, present on admission. Stable. -TSH mildly low at 0.33 but free T4 normal at 1.15. -Continue home levothyroxine 75 mcg daily. 9. Depression, chronic, present on admission. Stable. -Continue home citalopram 20 mg daily. 10. Overactive bladder, chronic, present on admission. Stable. -Continue oxybutynin 5 mg daily at bedtime. 11. GERD, chronic, present on admission. Stable. -Continue famotidine 20 mg twice daily. Thank you for this most interesting consult. Medicine team will sign off at this time. Quality VTE Deep Vein Thrombosis/Pulmonary Embolism Present on Admission: No
[2018-12-09] MEDS: SODIUM CHLORIDE 0.9% 500 ML 125 ML IV (10:45)
[2018-12-09] MEDS: BISACODYL 10 MG SUPP PR (11:08)
--- NOTE | 2018-12-09 11:15 | PT.IPTN ---
Current Diagnoses Spondylolisthesis, lumbar region (12/05/18) Spinal stenosis, thoracic region (12/05/18) Spinal stenosis, lumbar region with neurogenic claudication (12/05/18) Surgery Performed Operation Date: 12/05/18 07:45 Actual Procedures p T-10-12 & L3-S1 laminectomies, L4-S1 instrumented fusion (TLIF) with bone graft(Not Applicable) - Ozzie Boyce MD Physical Therapy Treatment Note M2 PT-IP Current Condition Start: 12/06/18 08:22 Freq: NEEDED Status: Active Protocol: Document 12/06/18 10:35 HH (Rec: 12/06/18 12:08 [email or web address]) Physical Therapy Current Condition Current Condition Evaluation Date 12/06/18 Treatment Diagnosis T10-12&L3-S1 laminectomies, L4 -S1 TLIF, difficulty in walking, fall risks Onset Date 12/05/18 Precautions Lumbar Precautions Log Roll,No Twisting,Limit Bending,Lifting Restriction of 10 lbs,Gait Belt above Incisional Area Weight Bearing Status Weight Bearing Status Weight Bear as Tolerated M3 PT-IP Subjective Start: 12/06/18 08:22 Freq: NEEDED Status: Active Protocol: Document 12/09/18 11:15 GGD (Rec: 12/09/18 12:39 GGD [email or web address]) Subjective Physical Therapy Visit Type Type Treatment Note Visit Start Time 11:01 Visit Stop Time 11:15 Total Visit Minutes 14 Physical Therapy Visit Comments Patient Comments Pt states she needs to use the bathroom. M4 PT-IP Mobility and Gait Start: 12/06/18 08:22 Freq: NEEDED Status: Active Protocol: Document 12/09/18 11:15 GGD (Rec: 12/09/18 12:39 GGD [email or web address]) PT-Bed Mobility Assessment Rolling Level of Assist Contact Guard Assistance,1 Person Assistance Supine to Sit Supine to Sit Minimal Assistance,1 Person Assistance,Bedrails Scooting Scooting to Edge of Bed Contact Guard Assistance PT-Transfer Assessment Sit to and From Stand Sit to and from Stand Contact Guard Assistance,1 Person Assistance,Use of Upper Extremities Equipment Transfer Assistive Device Gait Belt,Front Wheeled Walker Orthotic/Prosthetic Devices or Brace: No Transfers Transfer Destination Chair,Bedside Commode Transfer Ability Level of Assist Contact Guard Assistance,1 Person Assistance,Use of Upper Extremities Gait Assessment Gait Gait Assistance Required: Contact Guard Assist,1 Person Assist Distance (Feet) 50 Able to Maintain Weight Bearing Status Yes During Gait Assistive Devices Assistive Device Gait Belt,Front Wheeled Walker Orthotic/Prosthetic Devices or Brace: No Gait Deviations General Gait Pattern Decreased Stride Length, Decreased Feet Clearance, Flexed Trunk Factors Limiting Gait Function Factors Limiting Gait Function Decreased Activity Tolerance, Decreased Strength, Incoordination,Pain,Poor Balance M5 PT-IP Objective Assessments Start: 12/06/18 08:22 Freq: NEEDED Status: Active Protocol: Document 12/06/18 10:35 HH (Rec: 12/06/18 12:08 [email or web address]) Orientation Orientation/Cognition Level of Alertness Alert Orientation Name,Age,Birthday,Month,Date, Year,Day of Week,Place, Situation Language Function Ability Word Finding Difficulties Safety Awareness Decreased Safety Awareness Memory Description Short Term Impaired Comments unable to retain post op precautions Gross Range of Motion Upper Extremity ROM Assessment Bilaterally Impaired Impairments L arm unable to lift pass shoulder level Lower Extremity ROM Assessment Bilaterally Impaired Strength Upper Extremity Strength Assessment Bilaterally Impaired Lower Extremity Strength Assessment Bilaterally Impaired Comments Strength Comments B UEs 3/5 B UEs 3-/5 Coordination Assessment Gross Coordination Gross Coordination WNL Sensation Assessment Sensation Gross Sensation WNL M6 PT-IP Treatment Start: 12/06/18 08:22 Freq: NEEDED Status: Active Protocol: Document 12/07/18 15:58 AW (Rec: 12/07/18 16:15 AW [email or web address]) Physical Therapy Treatment Exercises Exercises Ankle Pumps,Gluteal Sets,Quad Sets,Heel Slides Education Education Provided Safety M7 PT-IP Assessment and Plan Start: 12/06/18 08:22 Freq: NEEDED Status: Active Protocol: Document 12/09/18 11:15 GGD (Rec: 12/09/18 12:39 GGD [email or web address]) PT Summary Assessment and Plan Summary Assessment Summary PT able to progress mobility and gait distance. She had no LE buckling with gait. She did need min A for bed mobility. Pt would benefit from SNF before return home. Frequency of Treatment Frequency Of Treatment Twice a Day Treatment Plan Physical Therapy Treatment Plan Bed Mobility Training,Transfer Training,Gait Training, Therapeutic Exercise,Balance Retraining,Post Op Education, Discharge Planning,Hot or Cold Pack,Neuromuscular Re-ed Recommendations To Nursing Amount of Assist Needed 1 Person Assist Discharge Recommendations PT Discharge Recommendations SNF Rehab
--- NOTE | 2018-12-09 12:56 | PC.NURSE ---
Report called to Aicha at [facility]. Patient is scheduled for pick by [facility] transport. Patient has granddaughter at side. IV was dc'd intact. Waiting for sisal picker. Dressing to back remains CDI.
--- NOTE | 2018-12-09 13:05 | OT.IP.TRT ---
Current Diagnoses Spondylolisthesis, lumbar region (12/05/18) Spinal stenosis, thoracic region (12/05/18) Spinal stenosis, lumbar region with neurogenic claudication (12/05/18) Surgery Performed Operation Date: 12/05/18 07:45 Actual Procedures p T-10-12 & L3-S1 laminectomies, L4-S1 instrumented fusion (TLIF) with bone graft(Not Applicable) - Ozzie Boyce MD Occupational Therapy Treatment Note M2 OT-IP Current Condition Start: 12/06/18 17:03 Freq: Status: Active Protocol: Document 12/06/18 17:04 CCC (Rec: 12/06/18 17:32 [facility] [email or web address]) Occupational Therapy Current Condition Current Condition Evaluation Date 12/06/18 Treatment Diagnosis T10-11, T11-12 laminectomies, L4-5, L5-S1 TLIF, decreased self-care and cog Diagnosis Onset Date 12/05/18 Post Operative Precautions Lumbar Precautions Log Roll,No Twisting,Limit Bending,Lifting Restriction of 10 lbs,Gait Belt above Incisional Area Weight Bearing Status Weight Bearing Status Weight Bear as Tolerated M3 OT- IP Subjective and Pain Start: 12/06/18 17:03 Freq: Status: Active Protocol: Document 12/09/18 12:54 CGR (Rec: 12/09/18 13:04 CGR [email or web address]) OT- Subjective Occupational Therapy Visit Type Type Progress Note Visit Start Time 12:15 Visit Stop Time 12:40 Total Visit Minutes 25 Notes Pt preparing for discharge. OT Pain Assessment Pain When Pain Assessed At Rest Pain Present Pain Present Denied Pain M4 OT- IP ADL's Start: 12/06/18 17:03 Freq: Status: Active Protocol: Document 12/09/18 12:54 CGR (Rec: 12/09/18 13:04 CGR [email or web address]) OT TST-Jiey-Wdiobln General Evaluation Self-Feeding Ability Independent Comments OT Self-Feeding Comments Pt eating lunch when OT entered. OT ADL-Grooming Comments OT Grooming Comments Not performed on this date. OT ADL-Oral Care Comments Oral Care Comments Not performed on this date. OT ADL-Dressing General Eval Upper Body Dressing Ability Independent Lower Body Dressing Ability Minimal Assistance,Total Assistance Areas Needing Assistance Pull-Over Shirt,Underpants/ Brief,Pants/Shorts,Socks,Shoes Assistive Devices Dressing Assistive Devices Comparator Operator Comments OT Dressing Comments Min a for threading brief in BR without AD Min a for threading pants seated in chair using gameroom technician. Total assist for socks and shoes d/t time constrants at end of session with d/c. OT ADL-Toileting General Evaluation Toileting Ability Moderate Assistance Devices Toileting Assistive Devices Grab Bars Comments OT Toileting Comments Pt needed assist with toileting after BM. OT ADL-Bathing Comments OT Bathing Comments Not performed in this session. M5 OT- IP IADL's Start: 12/06/18 17:03 Freq: Status: Active Protocol: Document 12/06/18 17:04 CCC (Rec: 12/06/18 17:32 CCC [email or web address]) OT-Instrumental Activities of Daily Living Home Safety Awareness Home Safety Comments At this time due to having difficulty with functional cognition and sequencing through steps of ADl's and needing extensive assist for transfers, pt will need assist for all IADL's at thsi time. M6 OT- IP Functional Cognition Start: 12/06/18 17:03 Freq: Status: Active Protocol: Document 12/09/18 12:54 CGR (Rec: 12/09/18 13:04 CGR [email or web address]) Cognitive Factors Limiting Selfcare Function Cognitive Ability Level of Alertness Alert Patient Orientation Name,Age,Birthday,Month,Date, Year,Day of Week,Place, Situation Ability to Follow Commands Able to Follow One Step Commands Cognitive Comments Cognitive Assessment Comments Pt appears much more clear today when compared to yesterdays session. M7 OT- IP Mobility and Balance Start: 12/06/18 17:03 Freq: Status: Active Protocol: Document 12/09/18 12:54 CGR (Rec: 12/09/18 13:04 CGR [email or web address]) OT-Transfer Assessment Sit to and From Stand Sit to and from Stand Minimal Assistance Transfers Transfer Ability Contact Guard Assistance Technique Transfer Destination Chair,Toilet Transfer Technique Stand Step Pivot Devices Transfer Assistive Devices Gait Belt,Front Wheeled Walker OT- Gait Assessment Gait Gait Assistance Required: Contact Guard Assist Assistive Devices Assistive Device Gait Belt,Front Wheeled Walker Comments Gait Ability Comments Mobility from chair to bathroom and return. OT- Balance Assessment Sitting Balance and Reactions Static Sitting Balance Ability Good Dynamic Sitting Balance Ability Fair Standing Balance and Reactions Static Standing Balance Ability Fair Dynamic Standing Balance Ability Poor M8 OT- IP Objective Assessments Start: 12/06/18 17:03 Freq: Status: Active Protocol: Document 12/06/18 17:04 CCC (Rec: 12/06/18 17:32 CCC [email or web address]) OT Gross Range of Motion Upper Extremity Range of Motion Assessment Right Impaired ROM Impairments Pt's RUE 10 degress in scaption, WFL from elbow to distal, LUE WFL OT Strength Comments Strength Comments RUE 3-/5 to 4-/5, LUE 4-/5 throughout. OT- Coordination Assessment Upper Extremity Finger to Nose Test Right UE Impaired Comments Coordination Comments Increased time to touch nose with right hand and slightly off. Able to do finger to thumb coordination with both hands. OT-Muscle Tone Assessment Muscle Tone WNL Yes Comments Muscle Tone Comments Pt at rest has a tremor and tends to be unsteady when trying to reach out to touch therpaist's hand. OT Sensation Assessment Comments Summary Comments RUE impaired for light touch throughtout and even when left hand touched would state right hand being touched. Pt describes the sensation of numbness and tingling RUE> LUE . M9 OT- IP Assessment and Plan Start: 12/06/18 17:03 Freq: Status: Active Protocol: Document 12/09/18 12:54 CGR (Rec: 12/09/18 13:04 CGR [email or web address]) OT Summary Assessment and Plan Potential Rehabilitation Potential Fair Analytic Complexity at Evaluation Moderate Summary OT Impairments Pain,Strength,Balance, Sensation,Functional Cognition ,Functional Mobility,Self- Feeding,Grooming,Dressing, Toileting,Bathing,Toilet Transfers,Shower Transfers Progress Towards Goals Slow Progress due to Pain,Slow Progress due to Medical Issues,Slow Progress due to Activity Tolerance,Slow Progress due to Cognition Assessment Summary Pt improving with mobility and ADLs in this session. Pt is preparing for discharge to SNF at this time and dressed for transfer. Pt will benefit from continued OT services. Recommend d/c to STR. Goals Self-Feeding Goal Standby Assistance Grooming Goal Standby Assistance Dressing Goal Minimal Assistance Toileting Goal Minimal Assistance Bathing Goal Moderate Assistance Toilet Transfer Goal Contact Guard Assistance Shower Transfer Goal Minimal Assistance OT-Other Goals grooming while standing Days to Meet Goals 6 Frequency of Treatment Frequency Of Treatment Once a Day Treatment Plan OT Treatment Plan ADL Training,Functional Cognition Training,Functional Mobility,Patient/Family Education,Discharge Planning Other Treatment Recommendations and Next lowe body dressing equipment Treatment Focus education , back precautions Discharge Recommendations OT Discharge Recommendations SNF Rehab Home Equipment Needs defer to SNF
== END 2018-12-09 15:50 | DRG 454 ==
PROVIDERS: Internal Medicine; Admitting Provider Orthopaedic Surgery; PCP Family Medicine; Visit Provider Orthopaedic Surgery
PROC: 0SG00AJ Fusion of Lumbar Vertebral Joint with Interbody Fusion Device, Posterior Approach, Anterior Column, Open Approach (ICD-10-PCS; principal; 2018-12-05 07:45)
DX: M48.04 Spinal stenosis, thoracic region (principal); R47.01 Aphasia; D62 Acute posthemorrhagic anemia; N17.9 Acute kidney failure, unspecified; N18.4 Chronic kidney disease, stage 4 (severe); G95.9 Disease of spinal cord, unspecified; I49.5 Sick sinus syndrome; I35.0 Nonrheumatic aortic (valve) stenosis; M48.062 Spinal stenosis, lumbar region with neurogenic claudication; M43.16 Spondylolisthesis, lumbar region; I12.9 Hypertensive chronic kidney disease with stage 1 through stage 4 chronic kidney disease, or unspecified chronic kidney disease; E03.9 Hypothyroidism, unspecified; F32.9 Major depressive disorder, single episode, unspecified; I25.10 Atherosclerotic heart disease of native coronary artery without angina pectoris; Z95.0 Presence of cardiac pacemaker; Z86.711 Personal history of pulmonary embolism; N32.81 Overactive bladder
CPT/HCPCS: 36415; 70450; 72100; 76000; 80048; 80053; 80061; 82607; 82746; 83036; 83735; 84439; 84443; 84484; 85014; 85018; 85025; 92507; 92523; 93005; 93010; 94760; 94762; 96125; 97110; 97116; 97163; 97166; 97530; 97535; C1776; J0330; J0595; J1170; J2175; J2250; J2274; J2405; J2704; J3010